=== PATIENT | male | born 1960 | race Caucasian/White ===

== ENCOUNTER 2016-09-23 10:52 | Emergency (ER) | payer OTHER ==
[~2016-09-23 10:52] MED LIST: /ADVA50050 INH; ACET500C OR; ACET65TA OR; ADV250INH INH; ALBU17IN INH; ASTE0.15; LEVA0.636 INH; MUCI600T34 PO; PRIL40CA OR; TYLE500T78 PO; albuterol neb
[2016-09-23 11:58] LABS: BASO % 0.5 % (0.0-1.0); LARGE UNSTAINED CELL # 0.2 K/mm3 (0.0-0.4); LARGE UNSTAINED CELL % 5.5 % (0.0-4.0); LYMPH # 1.5 K/mm3 (1.5-4.5); LYMPH % 34.4 % (24.0-44.0); MEAN CORPUSCULAR HEMOGLOBIN 28.8 pg (27.0-33.0); MEAN CORPUSCULAR HGB CONC 34.5 g/dl (32.0-36.5); MEAN CORPUSCULAR VOLUME 83.5 fl (80.0-96.0); MONO # 0.5 K/mm3 (0.0-0.8); MONO % 12.5 % (0.0-5.0); NEUTROPHILS # 1.9 K/mm3 (1.8-7.7); NEUTROPHILS % 46.1 % (36.0-66.0); PLATELET COUNT, AUTOMATED 181 k/mm3 (150-450); RED CELL DISTRIBUTION WIDTH 14.9 % (11.5-14.5); WHITE BLOOD COUNT 4.2 K/mm3 (4.0-10.0)
--- NOTE | 2016-09-23 12:11 | REP ---
CHEST, ONE VIEW: HISTORY: Cough. COMPARISON: 09/04/2016. There is elevation of the right hemidiaphragm with loss of volume in the right hemithorax. Linear density is present in the right lower lobe consistent with scar. There is postoperative change in the right hilum. The left lung is clear. The heart is normal in size. A catheter is present in the superior vena cava. There is partial resection of the right 6th rib. IMPRESSION: There is postoperative change in the right hemithorax. There is no acute disease. Signed by Keith Newberry MD 09/23/2016 12:13 P
[2016-09-23 12:52] LABS: ALBUMIN 3.7 GM/DL (3.2-5.2); ALBUMIN/GLOBULIN RATIO 1.19 (1.00-1.93); ALKALINE PHOSPHATASE 99 U/L (45-117); ALT/SGPT 25 U/L (12-78); ANION GAP 9 MEQ/L (8-16); AST/SGOT 17 U/L (15-37); BILIRUBIN,DIRECT < 0.1 MG/DL (0.0-0.2); BILIRUBIN,TOTAL 0.5 MG/DL (0.2-1.0); BLOOD UREA NITROGEN 17 MG/DL (7-18); CALCIUM LEVEL 8.1 MG/DL (8.5-10.1); CARBON DIOXIDE LEVEL 27 MEQ/L (21-32); CHLORIDE LEVEL 106 MEQ/L (98-107); CREATININE FOR GFR 0.92 MG/DL (0.70-1.30); GLOMERULAR FILTRATION RATE > 60.0 (>56); GLUCOSE, FASTING 75 MG/DL (70-105); SODIUM LEVEL 142 MEQ/L (136-145); TOTAL PROTEIN 6.8 GM/DL (6.4-8.2)
--- NOTE | 2016-09-23 15:50 | EDDOCDS ---
Nurse's Notes [facility] Name: Quentin Amaya Age: 56 yrs Sex: Male : 1960 Arrival Date: 09/23/2016 Time: 10:52 Bed I8 / 16 Private MD: Nelson Pizano M.D. Diagnosis: Acute upper respiratory infection, unspecified Presentation: 09/23 10:57 Presenting complaint: Patient states: head cold for a couple of weeks ago- cough, sinus srm headaches. hasnt been able to do chemo treatments for 2 weeks. finished cipro today. continues to cough. hx Right upper lobe removal. temp 99.4 at home. Adult Sepsis Screening: The patient does not have new or worsening altered mentation. Patient's respiratory rate is less than 22. Systolic blood pressure is greater than 100. Patient has a qSOFA score of 0- Negative Sepsis Screen. Suicide/Homicide risk assessment- the patient denies having any suicidal and/or homicidal ideations and does not present with any other emotional, behavioral or mental health complaints. Status: Patient is not a room service manager or dependent. Transition of care: patient was not received from another setting of care. 10:57 Acuity: MERT Level 3 srm 10:57 Method Of Arrival: Walkin/Carried/Asstd srm Triage Assessment: 11:00 General: Appears in no apparent distress, Behavior is appropriate for age, cooperative. srm Pain: Pain currently is 2 out of 10 on a pain scale. HIV screening NA for this visit Offered previously. Historical: - Allergies: no known allergies; - Home Meds: 1. Advair Diskus 250-50 mcg/dose Inhl dsdv 1 puff daily 2. albuterol sulfate 90 mcg/actuation Inhl HFAA 2 puffs daily 3. mucinex twice a day (Last dose: 09/23/2016 05:30) 4. asterpro 2 sprays 2 spray daily 5. Cipro 500 mg Oral tab 1 tab every 12 hours was his last dose (Last dose: 09/23/2016 09:30) - PMHx: COPD; Emphysema; Seasonal Allergies; lung cancer; - PSHx: left elbow surgery; Shoulder Arthroplasty, Left; Knee surgery- Left; right lobe resection; - Social history: Smoking status: Patient states former smoker of tobacco. No barriers to communication noted, The patient speaks fluent Ivorian, Speaks appropriately for age. - Family history: No immediate family members are acutely ill. - : The pt / caregiver states he / she is not on anticoagulants. Home medication list is obtained from the patient. - Exposure Risk Screening:: None identified. Screenin:02 Screening information is obtained from the patient. Fall risk: No risks identified. mb9 Assistance ADL's: requires no assistance with activities of daily living. Abuse/DV Screen: The patient / caregiver reports he/she is: not in a situation that causes fear, pain or injury. Nutritional screening: No deficits noted. Advance Directives: There is no active DNR order. home support is adequate. Assessment: 11:15 General: Appears in no apparent distress, Behavior is appropriate for age, cooperative. mb9 Pain: Denies pain. Neurological: Level of Consciousness is awake, alert, Oriented to person, place, time. Respiratory: Airway is patent Respiratory effort is even, unlabored, Breath sounds are clear in left posterior upper lobe and left posterior lower lobe Breath sounds are diminished in right posterior upper lobe, right posterior middle lobe and right posterior lower lobe Breath sounds with wheezes expiratory in right posterior upper lobe, right posterior middle lobe and right posterior lower lobe. 13:02 Reassessment: Patient appears in no apparent distress at this time. Adult Sepsis mb9 Screening: The patient does not have new or worsening altered mentation. Patient's respiratory rate is less than 22. Systolic blood pressure is greater than 100. Patient has a qSOFA score of 0- Negative Sepsis Screen. General: Appears to be sleeping. Respiratory: Airway is patent Respiratory effort is even, unlabored. 15:46 Reassessment: Patient appears in no apparent distress at this time. Patient states mb9 symptoms have improved. Adult Sepsis Screening: The patient does not have new or worsening altered mentation. Patient's respiratory rate is less than 22. Systolic blood pressure is greater than 100. Patient has a qSOFA score of 0- Negative Sepsis Screen. General: Appears in no apparent distress, comfortable, Behavior is appropriate for age, cooperative. Pain: Denies pain. Respiratory: Airway is patent Respiratory effort is even, unlabored. Vital Signs: 10:54 BP 146 / 85; Pulse 107; Resp 18 S; Temp 96.6(O); Pulse Ox 97% on R/A; Weight 95.25 kg dd6 (R); Height 5 ft. 6 in. (167.64 cm); 12:46 BP 139 / 92 (auto/); mb9 12:46 Pulse 88 MON; Pulse Ox 96% on R/A; mb9 13:16 BP 139 / 92 (auto/); mb9 13:16 Pulse 86 MON; Pulse Ox 94% on R/A; mb9 13:46 BP 142 / 95 (auto/); mb9 13:47 Pulse 84 MON; Resp 19; Temp 98.5(T); Pulse Ox 96% ; Pain 0/10; mb9 15:38 BP 135 / 89 (auto/); mb9 15:39 Pulse 88 MON; Resp 17; Temp 97(T); Pulse Ox 96% ; mb9 10:54 Body Mass Index 33.89 (95.25 kg, 167.64 cm) dd6 Vitals: 10:54 Log In Time: September 23, 2016 at 10:52. dd6 ED Course: 10:54 Patient visited by Eliud Jean PCA. dd6 10:54 Nelson Pizano is Private Physician. dd6 10:54 Patient moved to Waiting dd6 10:56 Patient moved to Pre RCE dd6 10:59 Triage Initiated srm 11:00 Patient moved to I8 / 16 srm 11:28 Patient visited by Shyam Gutierrez PCA. jlf 11:28 Patient visited by Shyam Gutierrez PCA. jlf 11:28 EKG done. (by ED staff). Reviewed by Amara Leung MD. jlf 11:30 Amara Leung MD is Attending Physician. sd1 11:42 Patient visited by Amara Leung MD. sd1 11:47 Patient visited by Shyam Gutierrez PCA. jlf 11:47 -Blood Culture Sent. jlf 11:47 C Reactive Protein Sent. jlf 11:47 CBC with Diff Sent. jlf 11:47 Lactic Acid (Wallace tube on ice) Sent. jlf 11:47 Liver Profile Sent. jlf 11:47 MED Profile Sent. jlf 11:55 Accessed using accessed w/ # 20 Berger needle, sterile technique, per hospital protocol. mb9 in patient's anterior aspect of left upper chest. Clean & dry. Dressing intact. Good blood return. Flushes easily. 12:11 Urine Culture Sent. mb9 12:11 Urinalysis Sent. mb9 12:17 Patient visited by Shyam Gutierrez PCA. jlf 12:37 Chest, 1 View Returned. EDMS 12:57 [facility] Payment Agreement was scanned into [employer] and attached to record. mm15 13:02 The patient / caregiver is instructed regarding the plan of care and ED course. Patient lukas has correct armband on for positive identification. Placed in gown. Call light in reach. Side rails up X 1. 13:03 Patient visited by Jose M Ribeiro,BENJAMÍN. mb9 14:06 Patient visited by Jose M Ribeiro RN. mb9 14:43 Patient visited by Shyam Gutierrez PCA. jlf 15:24 Nelson Pizano is Referral Physician. sd1 15:24 Gloria Adair is Referral Physician. sd1 15:47 Discontinued pressure dressing applied, No redness/swelling at site. No procedures done mb9 that require assistance. Administered Medications: 15:46 Drug: heparin 100units/mL flush (infusaport) 5 ml [heparin, porcine (PF) 10 unit/mL mb9 intravenous syringe (5 mL)] Route: IVP; Site: Implantable Access Device; Order Results: Lab Order: C Reactive Protein; SPEC'M 09/23/16 11:46 Test: C REACTIVE PROTEIN QUANTITATIV; Value: 3.23; Range: 0.00-0.30; Abnormal: Above high normal; Units: MG/DL; Status: F Lab Order: CBC with Diff; SPEC'M 09/23/16 11:46 Test: WHITE BLOOD COUNT; Value: 4.2; Range: 4.0-10.0; Units: K/mm3; Status: F Test: RED BLOOD COUNT; Value: 4.96; Range: 4.30-6.10; Units: M/mm3; Status: F Test: HEMOGLOBIN; Value: 14.3; Range: 14.0-18.0; Units: g/dl; Status: F Test: HEMATOCRIT; Value: 41.4; Range: 42.0-52.0; Abnormal: Below low normal; Units: %; Status: F Test: MEAN CORPUSCULAR VOLUME; Value: 83.5; Range: 80.0-96.0; Units: fl; Status: F Test: MEAN CORPUSCULAR HEMOGLOBIN; Value: 28.8; Range: 27.0-33.0; Units: pg; Status: F Test: MEAN CORPUSCULAR HGB CONC; Value: 34.5; Range: 32.0-36.5; Units: g/dl; Status: F Test: RED CELL DISTRIBUTION WIDTH; Value: 14.9; Range: 11.5-14.5; Abnormal: Above high normal; Units: %; Status: F Test: PLATELET COUNT, AUTOMATED; Value: 181; Range: 150-450; Units: k/mm3; Status: F Test: NEUTROPHILS %; Value: 46.1; Range: 36.0-66.0; Units: %; Status: F Test: LYMPH %; Value: 34.4; Range: 24.0-44.0; Units: %; Status: F Test: MONO %; Value: 12.5; Range: 0.0-5.0; Abnormal: Above high normal; Units: %; Status: F Test: EOS %; Value: 1.0; Range: 0.0-3.0; Units: %; Status: F Test: BASO %; Value: 0.5; Range: 0.0-1.0; Units: %; Status: F Test: LARGE UNSTAINED CELL %; Value: 5.5; Range: 0.0-4.0; Abnormal: Above high normal; Units: %; Status: F Test: NEUTROPHILS #; Value: 1.9; Range: 1.8-7.7; Units: K/mm3; Status: F Test: LYMPH #; Value: 1.5; Range: 1.5-4.5; Units: K/mm3; Status: F Test: MONO #; Value: 0.5; Range: 0.0-0.8; Units: K/mm3; Status: F Test: EOS #; Value: 0.0; Range: 0.0-0.50; Units: K/mm3; Status: F Test: BASO #; Value: 0.0; Range: 0.0-0.2; Units: K/mm3; Status: F Test: LARGE UNSTAINED CELL #; Value: 0.2; Range: 0.0-0.4; Units: K/mm3; Status: F Lab Order: Lactic Acid (Wallace tube on ice); SPEC'M 09/23/16 11:47 Test: LACTIC ACID LEVEL, LACTATE; Value: 0.6; Range: 0.4-2.0; Units: MMOL/L; Status: F Lab Order: Liver Profile; SPEC'M 09/23/16 11:46 Test: AST/SGOT; Value: 17; Range: 15-37; Units: U/L; Status: F Test: ALT/SGPT; Value: 25; Range: 12-78; Units: U/L; Status: F Test: ALKALINE PHOSPHATASE; Value: 99; Range: 45-117; Units: U/L; Status: F Test: BILIRUBIN,TOTAL; Value: 0.5; Range: 0.2-1.0; Units: MG/DL; Status: F Test: BILIRUBIN,DIRECT; Value: < 0.1; Range: 0.0-0.2; Units: MG/DL; Status: F Test: TOTAL PROTEIN; Value: 6.8; Range: 6.4-8.2; Units: GM/DL; Status: F Test: ALBUMIN; Value: 3.7; Range: 3.2-5.2; Units: GM/DL; Status: F Test: ALBUMIN/GLOBULIN RATIO; Value: 1.19; Range: 1.00-1.93; Status: F Lab Order: MED Profile; SPEC'M 09/23/16 11:46 Test: GLUCOSE, FASTING; Value: 75; Range: 70-105; Units: MG/DL; Status: F Test: BLOOD UREA NITROGEN; Value: 17; Range: 7-18; Units: MG/DL; Status: F Test: CREATININE FOR GFR; Value: 0.92; Range: 0.70-1.30; Units: MG/DL; Status: F Test: GLOMERULAR FILTRATION RATE; Value: > 60.0; Range: >56; Status: F Test: SODIUM LEVEL; Value: 142; Range: 136-145; Units: MEQ/L; Status: F Test: POTASSIUM SERUM; Value: 4.0; Range: 3.5-5.1; Units: MEQ/L; Status: F Test: CHLORIDE LEVEL; Value: 106; Range: 98-107; Units: MEQ/L; Status: F Test: CARBON DIOXIDE LEVEL; Value: 27; Range: 21-32; Units: MEQ/L; Status: F Test: ANION GAP; Value: 9; Range: 8-16; Units: MEQ/L; Status: F Test: CALCIUM LEVEL; Value: 8.1; Range: 8.5-10.1; Abnormal: Below low normal; Units: MG/DL; Status: F Test Note: ; Units are mL/min/1.73 m2 Chronic Kidney Disease Staging per NKF: Stage I & II GFR >=60 Normal to Mildly Decreased Stage III GFR 30-59 Moderately Decreased Stage IV GFR 15-29 Severely Decreased Stage V GFR <15 Very Little GFR Left ESRD GFR <15 on TINTER PHOTOGRAPH Lab Order: Urinalysis; SPEC'M 09/23/16 11:46 Test: APPEARANCE, URINE; Value: HAZY; Range: CLEAR; Status: F Test: COLOR, URINE; Value: YELLOW; Range: YELLOW; Status: F Test: PH,URINE; Value: 5.0; Range: 5.0-9.0; Units: UNITS; Status: F Test: SPECIFIC GRAVITY URINE AUTO; Value: 1.024; Range: 1.002-1.035; Status: F Test: PROTEIN, URINE AUTO; Value: NEGATIVE; Range: NEGATIVE; Units: mg/dL; Status: F Test: GLUCOSE, URINE (UA) AUTO; Value: NEGATIVE; Range: NEGATIVE; Units: mg/dL; Status: F Test: KETONE, URINE AUTO; Value: NEGATIVE; Range: NEGATIVE; Units: mg/dL; Status: F Test: UROBILINOGEN, URINE AUTO; Value: 0.2; Range: 0.0-2.0; Units: mg/dL; Status: F Test: BILIRUBIN, URINE AUTO; Value: NEGATIVE; Range: NEGATIVE; Status: F Test: NITRITE, URINE AUTO; Value: NEGATIVE; Range: NEGATIVE; Status: F Test: LEUKOCYTE ESTERASE, URINE AUTO; Value: NEGATIVE; Range: NEGATIVE; Status: F Test: BLOOD, URINE BLOOD; Value: NEGATIVE; Range: NEGATIVE; Status: F Test: WBC, URINE AUTO; Value: 1; Range: 0-3; Units: /HPF; Status: F Test: RBC, URINE AUTO; Value: 1; Range: 0-3; Units: /HPF; Status: F Test: BACTERIA, URINE AUTO; Value: NEGATIVE; Range: NEGATIVE; Status: F Test: SQUAMOUS EPITHELIAL CELL UR AU; Value: 0; Range: 0-6; Units: /HPF; Status: F Test: MUCUS, URINE; Value: SMALL; Range: NEGATIVE; Status: F Test: HYALINE CAST, URINE AUTO; Value: 0; Range: 0-1; Units: /LPF; Status: F Radiology Order: Chest, 1 View Test: Chest, 1 View REASON FOR EXAMINATION: Cough; CHEST, ONE VIEW:; ; HISTORY: Cough.; ; COMPARISON: 09/04/2016.; ; There is elevation of the right hemidiaphragm with loss of volume in the right; hemithorax. Linear density is present in the right lower lobe consistent with; scar. There is postoperative change in the right hilum. The left lung is clear.; The heart is normal in size. A catheter is present in the superior vena cava.; There is partial resection of the right 6th rib.; ; IMPRESSION:; ; There is postoperative change in the right hemithorax. There is no acute; disease.; ; ; Signed by; Keith Newberry MD 09/23/2016 12:13 P; Outcome: 15:24 Discharge ordered by Provider. sd1 15:47 Discharge Assessment: Patient awake, alert and oriented x 3. No cognitive and/or mb9 functional deficits noted. Patient verbalized understanding of disposition instructions. patient administered narcotics - no. The following High Risk Discharge criteria are identified: None. Discharged to home ambulatory. Condition: good Condition: stable Condition: improved. Discharge instructions given to patient, Instructed on discharge instructions, follow up and referral plans. Demonstrated understanding of instructions, medications, Prescriptions given X. CT Study completed. Property :Personal belongings accompany Pt. 15:49 Patient left the ED. mb9 Signatures: Dispatcher [employer] EDMS Amara Leung MD MD sd1 Haylie Gotti, RN RN Eliud Jaime, GROUNDS WORKER GROUNDS WORKER dd6 Consuelo Parks mm15 Shyam Gutierrez, GROUNDS WORKER GROUNDS WORKER jlf Jose M Ribeiro RN RN mb9 Corrections: (The following items were deleted from the chart) 12:48 12:35 Pulse 78bpm; Monitor; Pulse Ox 99%; mb9 mb9 12:48 12:34 BP 119 / 58 Auto; mb9 mb9 12:48 12:20 Pulse 82bpm; Monitor; Pulse Ox 93%; mb9 mb9 12:48 12:19 BP 133 / 64 Auto; mb9 mb9 12:48 12:05 Pulse 84bpm; Monitor; Pulse Ox 94%; mb9 mb9 12:48 12:04 BP 119 / 59 Auto; mb9 mb9 12:48 12:17 Pulse 86bpm; Monitor; Pulse Ox 93%; mb9 mb9 12:48 12:16 BP 139 / 92 Auto; mb9 mb9 MTDD
--- NOTE | 2016-09-23 15:50 | EDDOCDS ---
Physician Documentation [facility] Name: Quentin Amaya Age: 56 yrs Sex: Male : 1960 Arrival Date: 09/23/2016 Time: 10:52 Bed I8 / 16 Private MD: Nelson Pizano M.D. Disposition: 09/23/16 15:24 Discharged to Home/Self Care. Impression: Acute upper respiratory infection, unspecified. - Condition is Stable. - Discharge Instructions: Upper Respiratory Infection, Adult. - Medication Reconciliation, Local Pharmacy Hours form. - Follow up: Nelson Pizano; When: 1 - 2 days. Follow up: Gloria Adair; When: Tomorrow. - Problem is new. - Symptoms are unchanged. Historical: - Allergies: no known allergies; - Home Meds: 1. Advair Diskus 250-50 mcg/dose Inhl dsdv 1 puff daily 2. albuterol sulfate 90 mcg/actuation Inhl HFAA 2 puffs daily 3. mucinex twice a day (Last dose: 09/23/2016 05:30) 4. asterpro 2 sprays 2 spray daily 5. Cipro 500 mg Oral tab 1 tab every 12 hours was his last dose (Last dose: 09/23/2016 09:30) - PMHx: COPD; Emphysema; Seasonal Allergies; lung cancer; - PSHx: left elbow surgery; Shoulder Arthroplasty, Left; Knee surgery- Left; right lobe resection; - Social history: Smoking status: Patient states former smoker of tobacco. No barriers to communication noted, The patient speaks fluent Czech, Speaks appropriately for age. - Family history: No immediate family members are acutely ill. - : The pt / caregiver states he / she is not on anticoagulants. Home medication list is obtained from the patient. - Exposure Risk Screening:: None identified. Vital Signs: 09/23 10:54 BP 146 / 85; Pulse 107; Resp 18 S; Temp 96.6(O); Pulse Ox 97% on R/A; Weight 95.25 kg / dd6 209.99 lbs (R); Height 5 ft. 6 in. (167.64 cm); 12:46 BP 139 / 92 (auto/); mb9 12:46 Pulse 88 MON; Pulse Ox 96% on R/A; mb9 13:16 BP 139 / 92 (auto/); mb9 13:16 Pulse 86 MON; Pulse Ox 94% on R/A; mb9 13:46 BP 142 / 95 (auto/); mb9 13:47 Pulse 84 MON; Resp 19; Temp 98.5(T); Pulse Ox 96% ; Pain 0/10; mb9 15:38 BP 135 / 89 (auto/); mb9 15:39 Pulse 88 MON; Resp 17; Temp 97(T); Pulse Ox 96% ; mb9 10:54 Body Mass Index 33.89 (95.25 kg, 167.64 cm) dd6 MDM: 11:07 -Blood Culture (Adults Only), peripheral from different site, or from device/port/PICC sd1 etc. if present ordered. 11:07 Service Promoter Salesperson/Pulse Ox/q 15 min VS ordered. sd1 11:07 Oxygen at 4L/Min NC or Home dosage ordered. sd1 11:08 C Reactive Protein Ordered. EDMS 11:08 CBC with Diff Ordered. EDMS 11:08 Lactic Acid (Wallace tube on ice) Ordered. EDMS 11:08 Liver Profile Ordered. EDMS 11:08 MED Profile Ordered. EDMS 11:08 Urinalysis Ordered. EDMS 11:09 -Blood Culture Ordered. EDMS 11:09 Urine Culture Ordered. EDMS 11:09 Chest, 1 View Ordered. EDMS 11:09 ECG WITH READING ER PHYS+CARDIAG ordered. EDMS 11:23 -Blood Culture (Adults Only), peripheral from different site, or from device/port/PICC lbd etc. if present complete. 11:25 BLOOD CULTURES Ordered. EDMS 12:46 Financial registration complete. mm15 12:57 [facility] Payment Agreement was scanned into [employer] and attached to record. mm15 13:24 C Reactive Protein Reviewed. sd1 13:24 CBC with Diff Reviewed. sd1 13:24 MED Profile Reviewed. sd1 13:24 Lactic Acid (Wallace tube on ice) Reviewed. sd1 13:24 Liver Profile Reviewed. sd1 13:24 Urinalysis Reviewed. sd1 13:24 Chest, 1 View Reviewed. sd1 14:30 CT Chest Without Contrast Ordered. EDMS 15:34 heparin 100units/mL flush (infusaport) 5 ml IVP once; flush first with 10mL of NS mb9 followed by heparin ordered. 15:34 Access Infusaport ordered. mb9 Administered Medications: 15:46 Drug: heparin 100units/mL flush (infusaport) 5 ml [heparin, porcine (PF) 10 unit/mL mb9 intravenous syringe (5 mL)] Route: IVP; Site: Implantable Access Device; Signatures: Dispatcher [employer] EDAmara Ryan MD MD sd1 Laurence Askew, Industrial Sociologist Unit lbd Haylie Gotti RN RN [facility] Consuelo Parks mm15 Jose M Ribeiro RN RN mb9 The chart was reviewed and I authenticate all verbal orders and agree with the evaluation and treatment provided.Attachments: 12:57 [facility] Payment Agreement mm15 MTDD
--- NOTE | 2016-09-23 15:59 | REP ---
CT chest without contrast, 09/23/2016: Indication : Cough and fever, on chemotherapy Comparison: CT chest 06/23/16, chest radiograph 09/04/16. Technique: 3 mm spiral axial sections performed through chest without contrast Findings: Thoracic aorta is without aneurysm. The heart is not enlarged. Soft tissue fullness is seen within the paratracheal region at the site of previously resected mass versus adenopathy which was hypermetabolic on PET scan 04/16/2016. Findings suggest prior right upper lobectomy. There is some volume loss within the right lung, especially apical region. There are several small punctate nodular densities within the lung luna which are compatible with calcified granulomata. Some nodules may not be calcified at this time, yet could represent granulomatous disease as well, although they are technically indeterminate. There are no pleural effusions or areas of lung consolidation. There is some atelectatic changes in the right lower lobe. There is mild to moderate diffuse fatty infiltration of liver. There are no focal intrahepatic lesions seen. Evaluation of the abdomen is limited by motion or respiratory artifact. There is persistent mural thickening within the distal esophagus at gastroesophageal junction as previously noted. Visualized portions of spleen, pancreas, and gallbladder grossly normal, but limited by motion artifact. Impression1. Postsurgical changes within the right hilum most compatible with prior right upper lobectomy. Persistent mural thickening within the distal intrathoracic esophagus and gastroesophageal junction, which should be correlated clinically.2. Mild atelectatic changes in the right apical region and in the right base. There are no focal alveolar infiltrates or pleural effusions.3. Multiple calcified granulomata are seen bilaterally. There also a few scattered tiny round nodules, likely granulomatous disease yet not calcified. These of course are technically indeterminate and interval follow-up is recommended.4. Mild to moderate diffuse fatty infiltration of liver. Motion artifact obscures evaluation of the abdomen. Signed by Kirstie Carpio MD 09/26/2016 03:53 P
--- NOTE | 2016-09-23 20:01 | ECGEPIP ---
Stationary ECG Study [facility] - ED Test Date: 2016-09-23 Pat Name: MARLEN BONILLA Department: Room: - Gender: M Hospital Receiving Clerk: anjali : 1960 Requested By: Amara Leung Order Number: [id number] Reading MD: Amara Leung Measurements Intervals [place] Rate: 93 P: 36 OK: 116 QRS: 40 QRSD: 75 T: 7 QT: 345 QTc: 430 Interpretive Statements SINUS RHYTHM WITH SHORT OK INTERVAL NONSPECIFIC T-WAVE ABNORMALITY SIMILAR 06/23/16 Electronically Signed On 09-23-2016 20:00:57 EST by Amara Leung
--- NOTE | 2016-09-25 16:50 | EDDOCDS ---
Nurse's Notes [facility] Name: Marlen Bonilla Age: 56 yrs Sex: Male : 1960 Arrival Date: 09/23/2016 Time: 10:52 Bed I8 / 16 Private MD: Nelson Pizano M.D. Diagnosis: Acute upper respiratory infection, unspecified Presentation: 09/23 10:57 Presenting complaint: Patient states: head cold for a couple of weeks ago- cough, sinus srm headaches. hasnt been able to do chemo treatments for 2 weeks. finished cipro today. continues to cough. hx Right upper lobe removal. temp 99.4 at home. Adult Sepsis Screening: The patient does not have new or worsening altered mentation. Patient's respiratory rate is less than 22. Systolic blood pressure is greater than 100. Patient has a qSOFA score of 0- Negative Sepsis Screen. Suicide/Homicide risk assessment- the patient denies having any suicidal and/or homicidal ideations and does not present with any other emotional, behavioral or mental health complaints. 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 Transition of care: patient was not received from another setting of care. 10:57 Acuity: MERT Level 3 srm 10:57 Method Of Arrival: Walkin/Carried/Asstd srm Triage Assessment: 11:00 General: Appears in no apparent distress, Behavior is appropriate for age, cooperative. srm Pain: Pain currently is 2 out of 10 on a pain scale. HIV screening NA for this visit Offered previously. Historical: - Allergies: no known allergies; - Home Meds: 1. Advair Diskus 250-50 mcg/dose Inhl dsdv 1 puff daily 2. albuterol sulfate 90 mcg/actuation Inhl HFAA 2 puffs daily 3. mucinex twice a day (Last dose: 09/23/2016 05:30) 4. asterpro 2 sprays 2 spray daily 5. Cipro 500 mg Oral tab 1 tab every 12 hours was his last dose (Last dose: 09/23/2016 09:30) - PMHx: COPD; Emphysema; Seasonal Allergies; lung cancer; - PSHx: left elbow surgery; Shoulder Arthroplasty, Left; Knee surgery- Left; right lobe resection; - Social history: Smoking status: Patient states former smoker of tobacco. No barriers to communication noted, The patient speaks fluent Indonesian, Speaks appropriately for age. - Family history: No immediate family members are acutely ill. - : The pt / caregiver states he / she is not on anticoagulants. Home medication list is obtained from the patient. - Exposure Risk Screening:: None identified. Screenin:02 Screening information is obtained from the patient. Fall risk: No risks identified. mb9 Assistance ADL's: requires no assistance with activities of daily living. Abuse/DV Screen: The patient / caregiver reports he/she is: not in a situation that causes fear, pain or injury. Nutritional screening: No deficits noted. Advance Directives: There is no active DNR order. home support is adequate. Assessment: 11:15 General: Appears in no apparent distress, Behavior is appropriate for age, cooperative. mb9 Pain: Denies pain. Neurological: Level of Consciousness is awake, alert, Oriented to person, place, time. Respiratory: Airway is patent Respiratory effort is even, unlabored, Breath sounds are clear in left posterior upper lobe and left posterior lower lobe Breath sounds are diminished in right posterior upper lobe, right posterior middle lobe and right posterior lower lobe Breath sounds with wheezes expiratory in right posterior upper lobe, right posterior middle lobe and right posterior lower lobe. 13:02 Reassessment: Patient appears in no apparent distress at this time. Adult Sepsis mb9 Screening: The patient does not have new or worsening altered mentation. Patient's respiratory rate is less than 22. Systolic blood pressure is greater than 100. Patient has a qSOFA score of 0- Negative Sepsis Screen. General: Appears to be sleeping. Respiratory: Airway is patent Respiratory effort is even, unlabored. 15:46 Reassessment: Patient appears in no apparent distress at this time. Patient states mb9 symptoms have improved. Adult Sepsis Screening: The patient does not have new or worsening altered mentation. Patient's respiratory rate is less than 22. Systolic blood pressure is greater than 100. Patient has a qSOFA score of 0- Negative Sepsis Screen. General: Appears in no apparent distress, comfortable, Behavior is appropriate for age, cooperative. Pain: Denies pain. Respiratory: Airway is patent Respiratory effort is even, unlabored. Vital Signs: 10:54 BP 146 / 85; Pulse 107; Resp 18 S; Temp 96.6(O); Pulse Ox 97% on R/A; Weight 95.25 kg dd6 (R); Height 5 ft. 6 in. (167.64 cm); 12:46 BP 139 / 92 (auto/); mb9 12:46 Pulse 88 MON; Pulse Ox 96% on R/A; mb9 13:16 BP 139 / 92 (auto/); mb9 13:16 Pulse 86 MON; Pulse Ox 94% on R/A; mb9 13:46 BP 142 / 95 (auto/); mb9 13:47 Pulse 84 MON; Resp 19; Temp 98.5(T); Pulse Ox 96% ; Pain 0/10; mb9 15:38 BP 135 / 89 (auto/); mb9 15:39 Pulse 88 MON; Resp 17; Temp 97(T); Pulse Ox 96% ; mb9 10:54 Body Mass Index 33.89 (95.25 kg, 167.64 cm) dd6 Vitals: 10:54 Log In Time: September 23, 2016 at 10:52. dd6 ED Course: 10:54 Patient visited by Eliud Jean PCA. dd6 10:54 Nelson Pizano is Private Physician. dd6 10:54 Patient moved to Waiting dd6 10:56 Patient moved to Pre RCE dd6 10:59 Triage Initiated srm 11:00 Patient moved to I8 / 16 srm 11:28 Patient visited by Shyam Gutierrez PCA. jlf 11:28 Patient visited by Shyam Gutierrez PCA. jlf 11:28 EKG done. (by ED staff). Reviewed by Amara Leung MD. jlf 11:30 Amara Leung MD is Attending Physician. sd1 11:42 Patient visited by Amara Leung MD. sd1 11:47 Patient visited by Shyam Gutierrez PCA. jlf 11:47 -Blood Culture Sent. jlf 11:47 C Reactive Protein Sent. jlf 11:47 CBC with Diff Sent. jlf 11:47 Lactic Acid (Wallace tube on ice) Sent. jlf 11:47 Liver Profile Sent. jlf 11:47 MED Profile Sent. jlf 11:55 Accessed using accessed w/ # 20 Berger needle, sterile technique, per hospital protocol. mb9 in patient's anterior aspect of left upper chest. Clean & dry. Dressing intact. Good blood return. Flushes easily. 12:11 Urine Culture Sent. mb9 12:11 Urinalysis Sent. mb9 12:17 Patient visited by Shyam Gutierrez PCA. jlf 12:37 Chest, 1 View Returned. EDMS 12:57 [facility] Payment Agreement was scanned into [employer] and attached to record. mm15 13:02 The patient / caregiver is instructed regarding the plan of care and ED course. Patient lukas has correct armband on for positive identification. Placed in gown. Call light in reach. Side rails up X 1. 13:03 Patient visited by Jose M Ribeiro,BENJAMÍN. mb9 14:06 Patient visited by Jose M Ribeiro RN. mb9 14:43 Patient visited by Shyam Gutierrez PCA. jlf 15:24 Nelson Pizano is Referral Physician. sd1 15:24 Gloria Adair is Referral Physician. sd1 15:47 Discontinued pressure dressing applied, No redness/swelling at site. No procedures done mb9 that require assistance. 16:35 CT Chest Without Contrast Returned. EDMS 20:06 EKG-ADULT Returned. EDMS 01 11:33 T-Sheet-- Draft Copy was scanned into [employer] and attached to record. gb Administered Medications: 09/23 15:46 Drug: heparin 100units/mL flush (infusaport) 5 ml [heparin, porcine (PF) 10 unit/mL mb9 intravenous syringe (5 mL)] Route: IVP; Site: Implantable Access Device; Order Results: Lab Order: -Blood Culture; SPEC'M 09/23/16 11:46 Test: BLOOD CULTURE; Value: No growth after 24 hours . All specimens observed; Status: F Test: BLOOD CULTURE; Value: for 5 days. Results final at that time.; Status: F Test: BLOOD CULTURE; Value: No Growth after 48 hours. All Specimens observed; Status: F Test: BLOOD CULTURE; Value: for 7 days. Results final at that time.; Status: F Lab Order: C Reactive Protein; SPEC'M 09/23/16 11:46 Test: C REACTIVE PROTEIN QUANTITATIV; Value: 3.23; Range: 0.00-0.30; Abnormal: Above high normal; Units: MG/DL; Status: F Lab Order: CBC with Diff; SPEC'M 09/23/16 11:46 Test: WHITE BLOOD COUNT; Value: 4.2; Range: 4.0-10.0; Units: K/mm3; Status: F Test: RED BLOOD COUNT; Value: 4.96; Range: 4.30-6.10; Units: M/mm3; Status: F Test: HEMOGLOBIN; Value: 14.3; Range: 14.0-18.0; Units: g/dl; Status: F Test: HEMATOCRIT; Value: 41.4; Range: 42.0-52.0; Abnormal: Below low normal; Units: %; Status: F Test: MEAN CORPUSCULAR VOLUME; Value: 83.5; Range: 80.0-96.0; Units: fl; Status: F Test: MEAN CORPUSCULAR HEMOGLOBIN; Value: 28.8; Range: 27.0-33.0; Units: pg; Status: F Test: MEAN CORPUSCULAR HGB CONC; Value: 34.5; Range: 32.0-36.5; Units: g/dl; Status: F Test: RED CELL DISTRIBUTION WIDTH; Value: 14.9; Range: 11.5-14.5; Abnormal: Above high normal; Units: %; Status: F Test: PLATELET COUNT, AUTOMATED; Value: 181; Range: 150-450; Units: k/mm3; Status: F Test: NEUTROPHILS %; Value: 46.1; Range: 36.0-66.0; Units: %; Status: F Test: LYMPH %; Value: 34.4; Range: 24.0-44.0; Units: %; Status: F Test: MONO %; Value: 12.5; Range: 0.0-5.0; Abnormal: Above high normal; Units: %; Status: F Test: EOS %; Value: 1.0; Range: 0.0-3.0; Units: %; Status: F Test: BASO %; Value: 0.5; Range: 0.0-1.0; Units: %; Status: F Test: LARGE UNSTAINED CELL %; Value: 5.5; Range: 0.0-4.0; Abnormal: Above high normal; Units: %; Status: F Test: NEUTROPHILS #; Value: 1.9; Range: 1.8-7.7; Units: K/mm3; Status: F Test: LYMPH #; Value: 1.5; Range: 1.5-4.5; Units: K/mm3; Status: F Test: MONO #; Value: 0.5; Range: 0.0-0.8; Units: K/mm3; Status: F Test: EOS #; Value: 0.0; Range: 0.0-0.50; Units: K/mm3; Status: F Test: BASO #; Value: 0.0; Range: 0.0-0.2; Units: K/mm3; Status: F Test: LARGE UNSTAINED CELL #; Value: 0.2; Range: 0.0-0.4; Units: K/mm3; Status: F Lab Order: Lactic Acid (Wallace tube on ice); [facility] 09/23/16 11:47 Test: LACTIC ACID LEVEL, LACTATE; Value: 0.6; Range: 0.4-2.0; Units: MMOL/L; Status: F Lab Order: Liver Profile; [facility] 09/23/16 11:46 Test: AST/SGOT; Value: 17; Range: 15-37; Units: U/L; Status: F Test: ALT/SGPT; Value: 25; Range: 12-78; Units: U/L; Status: F Test: ALKALINE PHOSPHATASE; Value: 99; Range: 45-117; Units: U/L; Status: F Test: BILIRUBIN,TOTAL; Value: 0.5; Range: 0.2-1.0; Units: MG/DL; Status: F Test: BILIRUBIN,DIRECT; Value: < 0.1; Range: 0.0-0.2; Units: MG/DL; Status: F Test: TOTAL PROTEIN; Value: 6.8; Range: 6.4-8.2; Units: GM/DL; Status: F Test: ALBUMIN; Value: 3.7; Range: 3.2-5.2; Units: GM/DL; Status: F Test: ALBUMIN/GLOBULIN RATIO; Value: 1.19; Range: 1.00-1.93; Status: F Lab Order: MED Profile; [facility] 09/23/16 11:46 Test: GLUCOSE, FASTING; Value: 75; Range: 70-105; Units: MG/DL; Status: F Test: BLOOD UREA NITROGEN; Value: 17; Range: 7-18; Units: MG/DL; Status: F Test: CREATININE FOR GFR; Value: 0.92; Range: 0.70-1.30; Units: MG/DL; Status: F Test: GLOMERULAR FILTRATION RATE; Value: > 60.0; Range: >56; Status: F Test: SODIUM LEVEL; Value: 142; Range: 136-145; Units: MEQ/L; Status: F Test: POTASSIUM SERUM; Value: 4.0; Range: 3.5-5.1; Units: MEQ/L; Status: F Test: CHLORIDE LEVEL; Value: 106; Range: 98-107; Units: MEQ/L; Status: F Test: CARBON DIOXIDE LEVEL; Value: 27; Range: 21-32; Units: MEQ/L; Status: F Test: ANION GAP; Value: 9; Range: 8-16; Units: MEQ/L; Status: F Test: CALCIUM LEVEL; Value: 8.1; Range: 8.5-10.1; Abnormal: Below low normal; Units: MG/DL; Status: F Test Note: ; Units are mL/min/1.73 m2 Chronic Kidney Disease Staging per NKF: Stage I & II GFR >=60 Normal to Mildly Decreased Stage III GFR 30-59 Moderately Decreased Stage IV GFR 15-29 Severely Decreased Stage V GFR <15 Very Little GFR Left ESRD GFR <15 on DATA PROGRAMMER Lab Order: Urinalysis; SPEC'M 09/23/16 11:46 Test: APPEARANCE, URINE; Value: HAZY; Range: CLEAR; Status: F Test: COLOR, URINE; Value: YELLOW; Range: YELLOW; Status: F Test: PH,URINE; Value: 5.0; Range: 5.0-9.0; Units: UNITS; Status: F Test: SPECIFIC GRAVITY URINE AUTO; Value: 1.024; Range: 1.002-1.035; Status: F Test: PROTEIN, URINE AUTO; Value: NEGATIVE; Range: NEGATIVE; Units: mg/dL; Status: F Test: GLUCOSE, URINE (UA) AUTO; Value: NEGATIVE; Range: NEGATIVE; Units: mg/dL; Status: F Test: KETONE, URINE AUTO; Value: NEGATIVE; Range: NEGATIVE; Units: mg/dL; Status: F Test: UROBILINOGEN, URINE AUTO; Value: 0.2; Range: 0.0-2.0; Units: mg/dL; Status: F Test: BILIRUBIN, URINE AUTO; Value: NEGATIVE; Range: NEGATIVE; Status: F Test: NITRITE, URINE AUTO; Value: NEGATIVE; Range: NEGATIVE; Status: F Test: LEUKOCYTE ESTERASE, URINE AUTO; Value: NEGATIVE; Range: NEGATIVE; Status: F Test: BLOOD, URINE BLOOD; Value: NEGATIVE; Range: NEGATIVE; Status: F Test: WBC, URINE AUTO; Value: 1; Range: 0-3; Units: /HPF; Status: F Test: RBC, URINE AUTO; Value: 1; Range: 0-3; Units: /HPF; Status: F Test: BACTERIA, URINE AUTO; Value: NEGATIVE; Range: NEGATIVE; Status: F Test: SQUAMOUS EPITHELIAL CELL UR AU; Value: 0; Range: 0-6; Units: /HPF; Status: F Test: MUCUS, URINE; Value: SMALL; Range: NEGATIVE; Status: F Test: HYALINE CAST, URINE AUTO; Value: 0; Range: 0-1; Units: /LPF; Status: F Lab Order: Urine Culture; SPEC'M 09/23/16 11:46 Test: URINE CULTURE; Value: URINE CULTURE RESULT NO GROWTH; Status: F Lab Order: BLOOD CULTURES; SPEC'M 09/23/16 11:52 Test: BLOOD CULTURE; Value: No growth after 24 hours . All specimens observed; Status: F Test: BLOOD CULTURE; Value: for 5 days. Results final at that time.; Status: F Test: BLOOD CULTURE; Value: No Growth after 48 hours. All Specimens observed; Status: F Test: BLOOD CULTURE; Value: for 7 days. Results final at that time.; Status: F Radiology Order: Chest, 1 View Test: Chest, 1 View REASON FOR EXAMINATION: Cough; CHEST, ONE VIEW:; ; HISTORY: Cough.; ; COMPARISON: 09/04/2016.; ; There is elevation of the right hemidiaphragm with loss of volume in the right; hemithorax. Linear density is present in the right lower lobe consistent with; scar. There is postoperative change in the right hilum. The left lung is clear.; The heart is normal in size. A catheter is present in the superior vena cava.; There is partial resection of the right 6th rib.; ; IMPRESSION:; ; There is postoperative change in the right hemithorax. There is no acute; disease.; ; ; Signed by; Keith Newberry MD 09/23/2016 12:13 P; Radiology Order: EKG-ADULT Test: EKG-ADULT REASON FOR EXAMINATION: weakness; Stationary ECG Study; [facility] - ED; ; Test Date: 2016-09-23; Pat Name: MARLEN BONILLA Department:; Room: -; Gender: M Digital Forensic Analyst: anjali; : 1960 Requested By: Amara Leung; Order Number: [id number] Reading MD: Amara Leung; Measurements; Intervals [place]; Rate: 93 P: 36; TX: 116 QRS: 40; QRSD: 75 T: 7; QT: 345; QTc: 430; Interpretive Statements; SINUS RHYTHM WITH SHORT TX INTERVAL; NONSPECIFIC T-WAVE ABNORMALITY; SIMILAR 06/23/16; Electronically Signed On 09-23-2016 20:00:57 EST by Amara Leung; Radiology Order: CT Chest Without Contrast Test: CT Chest Without Contrast REASON FOR EXAMINATION: cough fever chemo ; CT chest without contrast, 09/23/2016:; ; Indication : Cough and fever, on chemotherapy; ; Comparison: CT chest 06/23/16, chest radiograph 09/04/16.; ; Technique: 3 mm spiral axial sections performed through chest without contrast; ; Findings: Thoracic aorta is without aneurysm. The heart is not enlarged. Soft; tissue fullness is seen within the paratracheal region at the site of previously; resected mass versus adenopathy which was hypermetabolic on PET scan 04/16/2016.; Findings suggest prior right upper lobectomy.; ; There is some volume loss within the right lung, especially apical region. There; are several small punctate nodular densities within the lung luna which are; compatible with calcified granulomata. Some nodules may not be calcified at this; time, yet could represent granulomatous disease as well, although they are; technically indeterminate. There are no pleural effusions or areas of lung; consolidation. There is some atelectatic changes in the right lower lobe.; ; There is mild to moderate diffuse fatty infiltration of liver. There are no; focal intrahepatic lesions seen. Evaluation of the abdomen is limited by motion; or respiratory artifact. There is persistent mural thickening within the distal; esophagus at gastroesophageal junction as previously noted. Visualized portions; of spleen, pancreas, and gallbladder grossly normal, but limited by motion; artifact.; ; Impression; 1. Postsurgical changes within the right hilum most compatible with prior right; upper lobectomy. Persistent mural thickening within the distal intrathoracic; esophagus and gastroesophageal junction, which should be correlated clinically.; 2. Mild atelectatic changes in the right apical region and in the right base.; There are no focal alveolar infiltrates or pleural effusions.; 3. Multiple calcified granulomata are seen bilaterally. There also a few; scattered tiny round nodules, likely granulomatous disease yet not calcified.; These of course are technically indeterminate and interval follow-up is; recommended.; 4. Mild to moderate diffuse fatty infiltration of liver. Motion artifact; obscures evaluation of the abdomen.; ; ; ; ; Unreviewed; Outcome: 15:24 Discharge ordered by Provider. sd1 15:47 Discharge Assessment: Patient awake, alert and oriented x 3. No cognitive and/or mb9 functional deficits noted. Patient verbalized understanding of disposition instructions. patient administered narcotics - no. The following High Risk Discharge criteria are identified: None. Discharged to home ambulatory. Condition: good Condition: stable Condition: improved. Discharge instructions given to patient, Instructed on discharge instructions, follow up and referral plans. Demonstrated understanding of instructions, medications, Prescriptions given X. CT Study completed. Property :Personal belongings accompany Pt. 15:49 Patient left the ED. mb9 Signatures: Dispatcher [employer] EDMS Amara Leung MD MD sd1 Haylie Gotti, BENJAMÍN RN [facility] Jia Acosta, Reg Reg Eliud Jean, COMMUNICATIONS PROFESSIONAL COMMUNICATIONS PROFESSIONAL dd6 Consuelo Parks mm15 Shyam Gutierrez, COMMUNICATIONS PROFESSIONAL COMMUNICATIONS PROFESSIONAL jlf Jose M Ribeiro,BENJAMÍN RN mb9 Corrections: (The following items were deleted from the chart) 12:48 12:35 Pulse 78bpm; Monitor; Pulse Ox 99%; mb9 mb9 12:48 12:34 BP 119 / 58 Auto; mb9 mb9 12:48 12:20 Pulse 82bpm; Monitor; Pulse Ox 93%; mb9 mb9 12:48 12:19 BP 133 / 64 Auto; mb9 mb9 12:48 12:05 Pulse 84bpm; Monitor; Pulse Ox 94%; mb9 mb9 12:48 12:04 BP 119 / 59 Auto; mb9 mb9 12:48 12:17 Pulse 86bpm; Monitor; Pulse Ox 93%; mb9 mb9 12:48 12:16 BP 139 / 92 Auto; mb9 mb9 Chart Complete MTDD
--- NOTE | 2016-09-25 16:50 | EDDOCDS ---
Physician Documentation [facility] Name: Quentin Amaya Age: 56 yrs Sex: Male : 1960 Arrival Date: 09/23/2016 Time: 10:52 Bed I8 / 16 Private MD: Nelson Pizano M.D. Disposition: 09/23/16 15:24 Discharged to Home/Self Care. Impression: Acute upper respiratory infection, unspecified. - Condition is Stable. - Discharge Instructions: Upper Respiratory Infection, Adult. - Medication Reconciliation, Local Pharmacy Hours form. - Follow up: Nelson Pizano; When: 1 - 2 days. Follow up: Gloria Adair; When: Tomorrow. - Problem is new. - Symptoms are unchanged. Historical: - Allergies: no known allergies; - Home Meds: 1. Advair Diskus 250-50 mcg/dose Inhl dsdv 1 puff daily 2. albuterol sulfate 90 mcg/actuation Inhl HFAA 2 puffs daily 3. mucinex twice a day (Last dose: 09/23/2016 05:30) 4. asterpro 2 sprays 2 spray daily 5. Cipro 500 mg Oral tab 1 tab every 12 hours was his last dose (Last dose: 09/23/2016 09:30) - PMHx: COPD; Emphysema; Seasonal Allergies; lung cancer; - PSHx: left elbow surgery; Shoulder Arthroplasty, Left; Knee surgery- Left; right lobe resection; - Social history: Smoking status: Patient states former smoker of tobacco. No barriers to communication noted, The patient speaks fluent Slovenian, Speaks appropriately for age. - Family history: No immediate family members are acutely ill. - : The pt / caregiver states he / she is not on anticoagulants. Home medication list is obtained from the patient. - Exposure Risk Screening:: None identified. Vital Signs: 09/23 10:54 BP 146 / 85; Pulse 107; Resp 18 S; Temp 96.6(O); Pulse Ox 97% on R/A; Weight 95.25 kg / dd6 209.99 lbs (R); Height 5 ft. 6 in. (167.64 cm); 12:46 BP 139 / 92 (auto/); mb9 12:46 Pulse 88 MON; Pulse Ox 96% on R/A; mb9 13:16 BP 139 / 92 (auto/); mb9 13:16 Pulse 86 MON; Pulse Ox 94% on R/A; mb9 13:46 BP 142 / 95 (auto/); mb9 13:47 Pulse 84 MON; Resp 19; Temp 98.5(T); Pulse Ox 96% ; Pain 0/10; mb9 15:38 BP 135 / 89 (auto/); mb9 15:39 Pulse 88 MON; Resp 17; Temp 97(T); Pulse Ox 96% ; mb9 10:54 Body Mass Index 33.89 (95.25 kg, 167.64 cm) dd6 MDM: 11:07 -Blood Culture (Adults Only), peripheral from different site, or from device/port/PICC sd1 etc. if present ordered. 11:07 Hyperion Administrator/Pulse Ox/q 15 min VS ordered. sd1 11:07 Oxygen at 4L/Min NC or Home dosage ordered. sd1 11:08 C Reactive Protein Ordered. EDMS 11:08 CBC with Diff Ordered. EDMS 11:08 Lactic Acid (Wallace tube on ice) Ordered. EDMS 11:08 Liver Profile Ordered. EDMS 11:08 MED Profile Ordered. EDMS 11:08 Urinalysis Ordered. EDMS 11:09 -Blood Culture Ordered. EDMS 11:09 Urine Culture Ordered. EDMS 11:09 Chest, 1 View Ordered. EDMS 11:09 ECG WITH READING ER PHYS+CARDIAG ordered. EDMS 11:23 -Blood Culture (Adults Only), peripheral from different site, or from device/port/PICC lbd etc. if present complete. 11:25 BLOOD CULTURES Ordered. EDMS 12:46 Financial registration complete. mm15 12:57 [facility] [place] Agreement was scanned into [employer] and attached to record. mm15 13:24 C Reactive Protein Reviewed. sd1 13:24 CBC with Diff Reviewed. sd1 13:24 MED Profile Reviewed. sd1 13:24 Lactic Acid (Wallace tube on ice) Reviewed. sd1 13:24 Liver Profile Reviewed. sd1 13:24 Urinalysis Reviewed. sd1 13:24 Chest, 1 View Reviewed. sd1 14:30 CT Chest Without Contrast Ordered. EDMS 15:34 heparin 100units/mL flush (infusaport) 5 ml IVP once; flush first with 10mL of NS mb9 followed by heparin ordered. 15:34 Access Infusaport ordered. mb9 09/24 12:22 -Blood Culture Reviewed. sd1 12:22 Urine Culture Reviewed. sd1 12:22 BLOOD CULTURES Reviewed. sd1 12:22 EKG-ADULT Reviewed. sd1 12:22 CT Chest Without Contrast Reviewed. sd1 09/25 11:33 T-Sheet-- Draft Copy was scanned into [employer] and attached to record. gb Administered Medications: 09/23 15:46 Drug: heparin 100units/mL flush (infusaport) 5 ml [heparin, porcine (PF) 10 unit/mL mb9 intravenous syringe (5 mL)] Route: IVP; Site: Implantable Access Device; Signatures: Dispatcher [employer] EDAmara Ryan MD MD sd1 Laurence Askew, Payment Manager Unit lbd Haylie Gotti RN RN [facility] Jia Acosta, Reg Reg gb Consuelo Parks mm15 Jose M Ribeiro,RN RN mb9 The chart was reviewed and I authenticate all verbal orders and agree with the evaluation and treatment provided.Attachments: 12:57 [facility] Payment Agreement mm15 09/25 11:33 T-Sheet-- Draft Copy gb Chart Complete [facility]
--- NOTE | 2016-09-25 16:50 | EDDOCDS ---
Physician Documentation [facility] Name: Quentin Amaya Age: 56 yrs Sex: Male : 1960 Arrival Date: 09/23/2016 Time: 10:52 Bed I8 / 16 Private MD: Nelson Pizano M.D. Disposition: 09/23/16 15:24 Discharged to Home/Self Care. Impression: Acute upper respiratory infection, unspecified. - Condition is Stable. - Discharge Instructions: Upper Respiratory Infection, Adult. - Medication Reconciliation, Local Pharmacy Hours form. - Follow up: Nelson Pizano; When: 1 - 2 days. Follow up: Gloria Adair; When: Tomorrow. - Problem is new. - Symptoms are unchanged. Historical: - Allergies: no known allergies; - Home Meds: 1. Advair Diskus 250-50 mcg/dose Inhl dsdv 1 puff daily 2. albuterol sulfate 90 mcg/actuation Inhl HFAA 2 puffs daily 3. mucinex twice a day (Last dose: 09/23/2016 05:30) 4. asterpro 2 sprays 2 spray daily 5. Cipro 500 mg Oral tab 1 tab every 12 hours was his last dose (Last dose: 09/23/2016 09:30) - PMHx: COPD; Emphysema; Seasonal Allergies; lung cancer; - PSHx: left elbow surgery; Shoulder Arthroplasty, Left; Knee surgery- Left; right lobe resection; - Social history: Smoking status: Patient states former smoker of tobacco. No barriers to communication noted, The patient speaks fluent French, Speaks appropriately for age. - Family history: No immediate family members are acutely ill. - : The pt / caregiver states he / she is not on anticoagulants. Home medication list is obtained from the patient. - Exposure Risk Screening:: None identified. Vital Signs: 09/23 10:54 BP 146 / 85; Pulse 107; Resp 18 S; Temp 96.6(O); Pulse Ox 97% on R/A; Weight 95.25 kg / dd6 209.99 lbs (R); Height 5 ft. 6 in. (167.64 cm); 12:46 BP 139 / 92 (auto/); mb9 12:46 Pulse 88 MON; Pulse Ox 96% on R/A; mb9 13:16 BP 139 / 92 (auto/); mb9 13:16 Pulse 86 MON; Pulse Ox 94% on R/A; mb9 13:46 BP 142 / 95 (auto/); mb9 13:47 Pulse 84 MON; Resp 19; Temp 98.5(T); Pulse Ox 96% ; Pain 0/10; mb9 15:38 BP 135 / 89 (auto/); mb9 15:39 Pulse 88 MON; Resp 17; Temp 97(T); Pulse Ox 96% ; mb9 10:54 Body Mass Index 33.89 (95.25 kg, 167.64 cm) dd6 MDM: 11:07 -Blood Culture (Adults Only), peripheral from different site, or from device/port/PICC sd1 etc. if present ordered. 11:07 Wire Drawing Die Maker/Pulse Ox/q 15 min VS ordered. sd1 11:07 Oxygen at 4L/Min NC or Home dosage ordered. sd1 11:08 C Reactive Protein Ordered. EDMS 11:08 CBC with Diff Ordered. EDMS 11:08 Lactic Acid (Wallace tube on ice) Ordered. EDMS 11:08 Liver Profile Ordered. EDMS 11:08 MED Profile Ordered. EDMS 11:08 Urinalysis Ordered. EDMS 11:09 -Blood Culture Ordered. EDMS 11:09 Urine Culture Ordered. EDMS 11:09 Chest, 1 View Ordered. EDMS 11:09 ECG WITH READING ER PHYS+CARDIAG ordered. EDMS 11:23 -Blood Culture (Adults Only), peripheral from different site, or from device/port/PICC lbd etc. if present complete. 11:25 BLOOD CULTURES Ordered. EDMS 12:46 Financial registration complete. mm15 12:57 [facility] Payment Agreement was scanned into [employer] and attached to record. mm15 13:24 C Reactive Protein Reviewed. sd1 13:24 CBC with Diff Reviewed. sd1 13:24 MED Profile Reviewed. sd1 13:24 Lactic Acid (Wallace tube on ice) Reviewed. sd1 13:24 Liver Profile Reviewed. sd1 13:24 Urinalysis Reviewed. sd1 13:24 Chest, 1 View Reviewed. sd1 14:30 CT Chest Without Contrast Ordered. EDMS 15:34 heparin 100units/mL flush (infusaport) 5 ml IVP once; flush first with 10mL of NS mb9 followed by heparin ordered. 15:34 Access Infusaport ordered. mb9 09/24 12:22 -Blood Culture Reviewed. sd1 12:22 Urine Culture Reviewed. sd1 12:22 BLOOD CULTURES Reviewed. sd1 12:22 EKG-ADULT Reviewed. sd1 12:22 CT Chest Without Contrast Reviewed. sd1 09/25 11:33 T-Sheet-- Draft Copy was scanned into [employer] and attached to record. gb Administered Medications: 09/23 15:46 Drug: heparin 100units/mL flush (infusaport) 5 ml [heparin, porcine (PF) 10 unit/mL mb9 intravenous syringe (5 mL)] Route: IVP; Site: Implantable Access Device; Signatures: Dispatcher [employer] EDAmara Ryan MD MD sd1 Laurence Askew, Secondary Education Professor Unit lbd Haylie Gotti RN RN [facility] Jia Acosta, Reg Reg gb Consuelo Parks mm15 Jose M Ribeiro,RN RN mb9 The chart was reviewed and I authenticate all verbal orders and agree with the evaluation and treatment provided.Attachments: 12:57 [facility] Payment Agreement mm15 09/25 11:33 T-Sheet-- Draft Copy gb Chart Complete [facility]
--- NOTE | 2016-09-29 09:20 | EDDOCDS ---
Physician Documentation [facility] Name: Quentin Amaya Age: 56 yrs Sex: Male : 1960 Arrival Date: 09/23/2016 Time: 10:52 Bed I8 / 16 Private MD: Nelson Pizano M.D. Disposition: 09/23/16 15:24 Discharged to Home/Self Care. Impression: Acute upper respiratory infection, unspecified. - Condition is Stable. - Discharge Instructions: Upper Respiratory Infection, Adult. - Medication Reconciliation, Local Pharmacy Hours form. - Follow up: Nelson Pizano; When: 1 - 2 days. Follow up: Gloria Adair; When: Tomorrow. - Problem is new. - Symptoms are unchanged. Historical: - Allergies: no known allergies; - Home Meds: 1. Advair Diskus 250-50 mcg/dose Inhl dsdv 1 puff daily 2. albuterol sulfate 90 mcg/actuation Inhl HFAA 2 puffs daily 3. mucinex twice a day (Last dose: 09/23/2016 05:30) 4. asterpro 2 sprays 2 spray daily 5. Cipro 500 mg Oral tab 1 tab every 12 hours was his last dose (Last dose: 09/23/2016 09:30) - PMHx: COPD; Emphysema; Seasonal Allergies; lung cancer; - PSHx: left elbow surgery; Shoulder Arthroplasty, Left; Knee surgery- Left; right lobe resection; - Social history: Smoking status: Patient states former smoker of tobacco. No barriers to communication noted, The patient speaks fluent Yi, Speaks appropriately for age. - Family history: No immediate family members are acutely ill. - : The pt / caregiver states he / she is not on anticoagulants. Home medication list is obtained from the patient. - Exposure Risk Screening:: None identified. Vital Signs: 09/23 10:54 BP 146 / 85; Pulse 107; Resp 18 S; Temp 96.6(O); Pulse Ox 97% on R/A; Weight 95.25 kg / dd6 209.99 lbs (R); Height 5 ft. 6 in. (167.64 cm); 12:46 BP 139 / 92 (auto/); mb9 12:46 Pulse 88 MON; Pulse Ox 96% on R/A; mb9 13:16 BP 139 / 92 (auto/); mb9 13:16 Pulse 86 MON; Pulse Ox 94% on R/A; mb9 13:46 BP 142 / 95 (auto/); mb9 13:47 Pulse 84 MON; Resp 19; Temp 98.5(T); Pulse Ox 96% ; Pain 0/10; mb9 15:38 BP 135 / 89 (auto/); mb9 15:39 Pulse 88 MON; Resp 17; Temp 97(T); Pulse Ox 96% ; mb9 10:54 Body Mass Index 33.89 (95.25 kg, 167.64 cm) dd6 MDM: 11:07 -Blood Culture (Adults Only), peripheral from different site, or from device/port/PICC sd1 etc. if present ordered. 11:07 Coating Manager/Pulse Ox/q 15 min VS ordered. sd1 11:07 Oxygen at 4L/Min NC or Home dosage ordered. sd1 11:08 C Reactive Protein Ordered. EDMS 11:08 CBC with Diff Ordered. EDMS 11:08 Lactic Acid (Wallace tube on ice) Ordered. EDMS 11:08 Liver Profile Ordered. EDMS 11:08 MED Profile Ordered. EDMS 11:08 Urinalysis Ordered. EDMS 11:09 -Blood Culture Ordered. EDMS 11:09 Urine Culture Ordered. EDMS 11:09 Chest, 1 View Ordered. EDMS 11:09 ECG WITH READING ER PHYS+CARDIAG ordered. EDMS 11:23 -Blood Culture (Adults Only), peripheral from different site, or from device/port/PICC lbd etc. if present complete. 11:25 BLOOD CULTURES Ordered. EDMS 12:46 Financial registration complete. mm15 12:57 [facility] Payment Agreement was scanned into [employer] and attached to record. mm15 13:24 C Reactive Protein Reviewed. sd1 13:24 CBC with Diff Reviewed. sd1 13:24 MED Profile Reviewed. sd1 13:24 Lactic Acid (Wallace tube on ice) Reviewed. sd1 13:24 Liver Profile Reviewed. sd1 13:24 Urinalysis Reviewed. sd1 13:24 Chest, 1 View Reviewed. sd1 14:30 CT Chest Without Contrast Ordered. EDMS 15:34 heparin 100units/mL flush (infusaport) 5 ml IVP once; flush first with 10mL of NS mb9 followed by heparin ordered. 15:34 Access Infusaport ordered. mb9 09/24 12:22 -Blood Culture Reviewed. sd1 12:22 Urine Culture Reviewed. sd1 12:22 BLOOD CULTURES Reviewed. sd1 12:22 EKG-ADULT Reviewed. sd1 12:22 CT Chest Without Contrast Reviewed. sd1 09/25 11:33 T-Sheet-- Draft Copy was scanned into [employer] and attached to record. gb Administered Medications: 09/23 15:46 Drug: heparin 100units/mL flush (infusaport) 5 ml [heparin, porcine (PF) 10 unit/mL mb9 intravenous syringe (5 mL)] Route: IVP; Site: Implantable Access Device; Signatures: Dispatcher [employer]Host EDAmara Ryan MD MD sd1 Laurence Askew, Button Maker And Installer Unit lbd Haylie Gotti RN RN [facility] Jia Acosta, Reg Reg gb Consuelo Parks mm15 Jose M Ribeiro,RN RN mb9 The chart was reviewed and I authenticate all verbal orders and agree with the evaluation and treatment provided.Attachments: 12:57 [facility] Payment Agreement mm15 09/25 11:33 T-Sheet-- Draft Copy gb Chart Complete [facility]
--- NOTE | 2016-09-29 09:20 | EDDOCDS ---
Physician Documentation [facility] Name: Quentin Amaya Age: 56 yrs Sex: Male : 1960 Arrival Date: 09/23/2016 Time: 10:52 Bed I8 / 16 Private MD: Nelson Pizano M.D. Disposition: 09/23/16 15:24 Discharged to Home/Self Care. Impression: Acute upper respiratory infection, unspecified. - Condition is Stable. - Discharge Instructions: Upper Respiratory Infection, Adult. - Medication Reconciliation, Local Pharmacy Hours form. - Follow up: Nelson Pizano; When: 1 - 2 days. Follow up: Gloria Adair; When: Tomorrow. - Problem is new. - Symptoms are unchanged. Historical: - Allergies: no known allergies; - Home Meds: 1. Advair Diskus 250-50 mcg/dose Inhl dsdv 1 puff daily 2. albuterol sulfate 90 mcg/actuation Inhl HFAA 2 puffs daily 3. mucinex twice a day (Last dose: 09/23/2016 05:30) 4. asterpro 2 sprays 2 spray daily 5. Cipro 500 mg Oral tab 1 tab every 12 hours was his last dose (Last dose: 09/23/2016 09:30) - PMHx: COPD; Emphysema; Seasonal Allergies; lung cancer; - PSHx: left elbow surgery; Shoulder Arthroplasty, Left; Knee surgery- Left; right lobe resection; - Social history: Smoking status: Patient states former smoker of tobacco. No barriers to communication noted, The patient speaks fluent Latvian, Speaks appropriately for age. - Family history: No immediate family members are acutely ill. - : The pt / caregiver states he / she is not on anticoagulants. Home medication list is obtained from the patient. - Exposure Risk Screening:: None identified. Vital Signs: 09/23 10:54 BP 146 / 85; Pulse 107; Resp 18 S; Temp 96.6(O); Pulse Ox 97% on R/A; Weight 95.25 kg / dd6 209.99 lbs (R); Height 5 ft. 6 in. (167.64 cm); 12:46 BP 139 / 92 (auto/); mb9 12:46 Pulse 88 MON; Pulse Ox 96% on R/A; mb9 13:16 BP 139 / 92 (auto/); mb9 13:16 Pulse 86 MON; Pulse Ox 94% on R/A; mb9 13:46 BP 142 / 95 (auto/); mb9 13:47 Pulse 84 MON; Resp 19; Temp 98.5(T); Pulse Ox 96% ; Pain 0/10; mb9 15:38 BP 135 / 89 (auto/); mb9 15:39 Pulse 88 MON; Resp 17; Temp 97(T); Pulse Ox 96% ; mb9 10:54 Body Mass Index 33.89 (95.25 kg, 167.64 cm) dd6 MDM: 11:07 -Blood Culture (Adults Only), peripheral from different site, or from device/port/PICC sd1 etc. if present ordered. 11:07 Fulfillment Representative/Pulse Ox/q 15 min VS ordered. sd1 11:07 Oxygen at 4L/Min NC or Home dosage ordered. sd1 11:08 C Reactive Protein Ordered. EDMS 11:08 CBC with Diff Ordered. EDMS 11:08 Lactic Acid (Wallace tube on ice) Ordered. EDMS 11:08 Liver Profile Ordered. EDMS 11:08 MED Profile Ordered. EDMS 11:08 Urinalysis Ordered. EDMS 11:09 -Blood Culture Ordered. EDMS 11:09 Urine Culture Ordered. EDMS 11:09 Chest, 1 View Ordered. EDMS 11:09 ECG WITH READING ER PHYS+CARDIAG ordered. EDMS 11:23 -Blood Culture (Adults Only), peripheral from different site, or from device/port/PICC lbd etc. if present complete. 11:25 BLOOD CULTURES Ordered. EDMS 12:46 Financial registration complete. mm15 12:57 [facility] [place] Payment Agreement was scanned into [employer] and attached to record. mm15 13:24 C Reactive Protein Reviewed. sd1 13:24 CBC with Diff Reviewed. sd1 13:24 MED Profile Reviewed. sd1 13:24 Lactic Acid (Wallace tube on ice) Reviewed. sd1 13:24 Liver Profile Reviewed. sd1 13:24 Urinalysis Reviewed. sd1 13:24 Chest, 1 View Reviewed. sd1 14:30 CT Chest Without Contrast Ordered. EDMS 15:34 heparin 100units/mL flush (infusaport) 5 ml IVP once; flush first with 10mL of NS mb9 followed by heparin ordered. 15:34 Access Infusaport ordered. mb9 09/24 12:22 -Blood Culture Reviewed. sd1 12:22 Urine Culture Reviewed. sd1 12:22 BLOOD CULTURES Reviewed. sd1 12:22 EKG-ADULT Reviewed. sd1 12:22 CT Chest Without Contrast Reviewed. sd1 09/25 11:33 T-Sheet-- Draft Copy was scanned into [employer] and attached to record. gb Administered Medications: 09/23 15:46 Drug: heparin 100units/mL flush (infusaport) 5 ml [heparin, porcine (PF) 10 unit/mL mb9 intravenous syringe (5 mL)] Route: IVP; Site: Implantable Access Device; Signatures: Dispatcher [employer] EDAmara Ryan MD MD sd1 Laurence Askew, Gas Fitter Helper Unit lbd Haylie Gotti RN RN [facility] Jia Acosta, Reg Reg gb Consuelo Parks mm15 Jose M Ribeiro,RN RN mb9 The chart was reviewed and I authenticate all verbal orders and agree with the evaluation and treatment provided.Attachments: 12:57 [facility] Payment Agreement mm15 09/25 11:33 T-Sheet-- Draft Copy gb Chart Complete [facility]
--- NOTE | 2016-09-29 09:20 | EDDOCDS ---
Nurse's Notes [facility] Name: Marlen Bonilla Age: 56 yrs Sex: Male : 1960 Arrival Date: 09/23/2016 Time: 10:52 Bed I8 / 16 Private MD: Nelson Pizano M.D. Diagnosis: Acute upper respiratory infection, unspecified Presentation: 09/23 10:57 Presenting complaint: Patient states: head cold for a couple of weeks ago- cough, sinus srm headaches. hasnt been able to do chemo treatments for 2 weeks. finished cipro today. continues to cough. hx Right upper lobe removal. temp 99.4 at home. Adult Sepsis Screening: The patient does not have new or worsening altered mentation. Patient's respiratory rate is less than 22. Systolic blood pressure is greater than 100. Patient has a qSOFA score of 0- Negative Sepsis Screen. Suicide/Homicide risk assessment- the patient denies having any suicidal and/or homicidal ideations and does not present with any other emotional, behavioral or mental health complaints. Status: Patient is not a fiscal services manager or dependent. Transition of care: patient was not received from another setting of care. 10:57 Acuity: MERT Level 3 srm 10:57 Method Of Arrival: Walkin/Carried/Asstd srm Triage Assessment: 11:00 General: Appears in no apparent distress, Behavior is appropriate for age, cooperative. srm Pain: Pain currently is 2 out of 10 on a pain scale. HIV screening NA for this visit Offered previously. Historical: - Allergies: no known allergies; - Home Meds: 1. Advair Diskus 250-50 mcg/dose Inhl dsdv 1 puff daily 2. albuterol sulfate 90 mcg/actuation Inhl HFAA 2 puffs daily 3. mucinex twice a day (Last dose: 09/23/2016 05:30) 4. asterpro 2 sprays 2 spray daily 5. Cipro 500 mg Oral tab 1 tab every 12 hours was his last dose (Last dose: 09/23/2016 09:30) - PMHx: COPD; Emphysema; Seasonal Allergies; lung cancer; - PSHx: left elbow surgery; Shoulder Arthroplasty, Left; Knee surgery- Left; right lobe resection; - Social history: Smoking status: Patient states former smoker of tobacco. No barriers to communication noted, The patient speaks fluent [place]er, Speaks appropriately for age. - Family history: No immediate family members are acutely ill. - : The pt / caregiver states he / she is not on anticoagulants. Home medication list is obtained from the patient. - Exposure Risk Screening:: None identified. Screenin:02 Screening information is obtained from the patient. Fall risk: No risks identified. mb9 Assistance ADL's: requires no assistance with activities of daily living. Abuse/DV Screen: The patient / caregiver reports he/she is: not in a situation that causes fear, pain or injury. Nutritional screening: No deficits noted. Advance Directives: There is no active DNR order. home support is adequate. Assessment: 11:15 General: Appears in no apparent distress, Behavior is appropriate for age, cooperative. mb9 Pain: Denies pain. Neurological: Level of Consciousness is awake, alert, Oriented to person, place, time. Respiratory: Airway is patent Respiratory effort is even, unlabored, Breath sounds are clear in left posterior upper lobe and left posterior lower lobe Breath sounds are diminished in right posterior upper lobe, right posterior middle lobe and right posterior lower lobe Breath sounds with wheezes expiratory in right posterior upper lobe, right posterior middle lobe and right posterior lower lobe. 13:02 Reassessment: Patient appears in no apparent distress at this time. Adult Sepsis mb9 Screening: The patient does not have new or worsening altered mentation. Patient's respiratory rate is less than 22. Systolic blood pressure is greater than 100. Patient has a qSOFA score of 0- Negative Sepsis Screen. General: Appears to be sleeping. Respiratory: Airway is patent Respiratory effort is even, unlabored. 15:46 Reassessment: Patient appears in no apparent distress at this time. Patient states mb9 symptoms have improved. Adult Sepsis Screening: The patient does not have new or worsening altered mentation. Patient's respiratory rate is less than 22. Systolic blood pressure is greater than 100. Patient has a qSOFA score of 0- Negative Sepsis Screen. General: Appears in no apparent distress, comfortable, Behavior is appropriate for age, cooperative. Pain: Denies pain. Respiratory: Airway is patent Respiratory effort is even, unlabored. Vital Signs: 10:54 BP 146 / 85; Pulse 107; Resp 18 S; Temp 96.6(O); Pulse Ox 97% on R/A; Weight 95.25 kg dd6 (R); Height 5 ft. 6 in. (167.64 cm); 12:46 BP 139 / 92 (auto/); mb9 12:46 Pulse 88 MON; Pulse Ox 96% on R/A; mb9 13:16 BP 139 / 92 (auto/); mb9 13:16 Pulse 86 MON; Pulse Ox 94% on R/A; mb9 13:46 BP 142 / 95 (auto/); mb9 13:47 Pulse 84 MON; Resp 19; Temp 98.5(T); Pulse Ox 96% ; Pain 0/10; mb9 15:38 BP 135 / 89 (auto/); mb9 15:39 Pulse 88 MON; Resp 17; Temp 97(T); Pulse Ox 96% ; mb9 10:54 Body Mass Index 33.89 (95.25 kg, 167.64 cm) dd6 Vitals: 10:54 Log In Time: September 23, 2016 at 10:52. dd6 ED Course: 10:54 Patient visited by Eliud Jean PCA. dd6 10:54 Nelson Pizano is Private Physician. dd6 10:54 Patient moved to Waiting dd6 10:56 Patient moved to Pre RCE dd6 10:59 Triage Initiated srm 11:00 Patient moved to I8 / 16 srm 11:28 Patient visited by Shyam Gutierrez PCA. jlf 11:28 Patient visited by Shyam Gutierrez PCA. jlf 11:28 EKG done. (by ED staff). Reviewed by Amara Leung MD. jlf 11:30 Amara Leung MD is Attending Physician. sd1 11:42 Patient visited by Amara Leung MD. sd1 11:47 Patient visited by Shyam Gutierrez PCA. jlf 11:47 -Blood Culture Sent. jlf 11:47 C Reactive Protein Sent. jlf 11:47 CBC with Diff Sent. jlf 11:47 Lactic Acid (Wallace tube on ice) Sent. jlf 11:47 Liver Profile Sent. jlf 11:47 MED Profile Sent. jlf 11:55 Accessed using accessed w/ # 20 Berger needle, sterile technique, per hospital protocol. mb9 in patient's anterior aspect of left upper chest. Clean & dry. Dressing intact. Good blood return. Flushes easily. 12:11 Urine Culture Sent. mb9 12:11 Urinalysis Sent. mb9 12:17 Patient visited by Shyam Gutierrez PCA. jlf 12:37 Chest, 1 View Returned. EDMS 12:57 [facility] Payment Agreement was scanned into [employer] and attached to record. mm15 13:02 The patient / caregiver is instructed regarding the plan of care and ED course. Patient lukas has correct armband on for positive identification. Placed in gown. Call light in reach. Side rails up X 1. 13:03 Patient visited by Jose M Ribeiro,BENJAMÍN. mb9 14:06 Patient visited by Jose M Ribeiro RN. mb9 14:43 Patient visited by Shyam Gutierrez PCA. jlf 15:24 Nelson Pizano is Referral Physician. sd1 15:24 Gloria Adair is Referral Physician. sd1 15:47 Discontinued pressure dressing applied, No redness/swelling at site. No procedures done mb9 that require assistance. 16:35 CT Chest Without Contrast Returned. EDMS 20:06 EKG-ADULT Returned. EDMS 01 11:33 T-Sheet-- Draft Copy was scanned into [employer] and attached to record. gb Administered Medications: 09/23 15:46 Drug: heparin 100units/mL flush (infusaport) 5 ml [heparin, porcine (PF) 10 unit/mL mb9 intravenous syringe (5 mL)] Route: IVP; Site: Implantable Access Device; Order Results: Lab Order: -Blood Culture; SPEC'M 09/23/16 11:46 Test: BLOOD CULTURE; Value: No growth after 72 hours . All specimens observed; Status: F Test: BLOOD CULTURE; Value: for 5 days. Results final at that time.; Status: F Test: BLOOD CULTURE; Status: F Test: BLOOD CULTURE; Value: No growth after 48 hours . All specimens observed; Status: F Test: BLOOD CULTURE; Value: for 5 days. Results final at that time.; Status: F Test: BLOOD CULTURE; Status: F Test: BLOOD CULTURE; Value: No growth after 24 hours . All specimens observed; Status: F Test: BLOOD CULTURE; Value: for 5 days. Results final at that time.; Status: F Test: BLOOD CULTURE; Value: NO GROWTH AFTER 5 DAYS; Status: F Lab Order: C Reactive Protein; SPEC'M 09/23/16 11:46 Test: C REACTIVE PROTEIN QUANTITATIV; Value: 3.23; Range: 0.00-0.30; Abnormal: Above high normal; Units: MG/DL; Status: F Lab Order: CBC with Diff; SPEC'M 09/23/16 11:46 Test: WHITE BLOOD COUNT; Value: 4.2; Range: 4.0-10.0; Units: K/mm3; Status: F Test: RED BLOOD COUNT; Value: 4.96; Range: 4.30-6.10; Units: M/mm3; Status: F Test: HEMOGLOBIN; Value: 14.3; Range: 14.0-18.0; Units: g/dl; Status: F Test: HEMATOCRIT; Value: 41.4; Range: 42.0-52.0; Abnormal: Below low normal; Units: %; Status: F Test: MEAN CORPUSCULAR VOLUME; Value: 83.5; Range: 80.0-96.0; Units: fl; Status: F Test: MEAN CORPUSCULAR HEMOGLOBIN; Value: 28.8; Range: 27.0-33.0; Units: pg; Status: F Test: MEAN CORPUSCULAR HGB CONC; Value: 34.5; Range: 32.0-36.5; Units: g/dl; Status: F Test: RED CELL DISTRIBUTION WIDTH; Value: 14.9; Range: 11.5-14.5; Abnormal: Above high normal; Units: %; Status: F Test: PLATELET COUNT, AUTOMATED; Value: 181; Range: 150-450; Units: k/mm3; Status: F Test: NEUTROPHILS %; Value: 46.1; Range: 36.0-66.0; Units: %; Status: F Test: LYMPH %; Value: 34.4; Range: 24.0-44.0; Units: %; Status: F Test: MONO %; Value: 12.5; Range: 0.0-5.0; Abnormal: Above high normal; Units: %; Status: F Test: EOS %; Value: 1.0; Range: 0.0-3.0; Units: %; Status: F Test: BASO %; Value: 0.5; Range: 0.0-1.0; Units: %; Status: F Test: LARGE UNSTAINED CELL %; Value: 5.5; Range: 0.0-4.0; Abnormal: Above high normal; Units: %; Status: F Test: NEUTROPHILS #; Value: 1.9; Range: 1.8-7.7; Units: K/mm3; Status: F Test: LYMPH #; Value: 1.5; Range: 1.5-4.5; Units: K/mm3; Status: F Test: MONO #; Value: 0.5; Range: 0.0-0.8; Units: K/mm3; Status: F Test: EOS #; Value: 0.0; Range: 0.0-0.50; Units: K/mm3; Status: F Test: BASO #; Value: 0.0; Range: 0.0-0.2; Units: K/mm3; Status: F Test: LARGE UNSTAINED CELL #; Value: 0.2; Range: 0.0-0.4; Units: K/mm3; Status: F Lab Order: Lactic Acid (Wallace tube on ice); SPEC'M 09/23/16 11:47 Test: LACTIC ACID LEVEL, LACTATE; Value: 0.6; Range: 0.4-2.0; Units: MMOL/L; Status: F Lab Order: Liver Profile; SPEC'M 09/23/16 11:46 Test: AST/SGOT; Value: 17; Range: 15-37; Units: U/L; Status: F Test: ALT/SGPT; Value: 25; Range: 12-78; Units: U/L; Status: F Test: ALKALINE PHOSPHATASE; Value: 99; Range: 45-117; Units: U/L; Status: F Test: BILIRUBIN,TOTAL; Value: 0.5; Range: 0.2-1.0; Units: MG/DL; Status: F Test: BILIRUBIN,DIRECT; Value: < 0.1; Range: 0.0-0.2; Units: MG/DL; Status: F Test: TOTAL PROTEIN; Value: 6.8; Range: 6.4-8.2; Units: GM/DL; Status: F Test: ALBUMIN; Value: 3.7; Range: 3.2-5.2; Units: GM/DL; Status: F Test: ALBUMIN/GLOBULIN RATIO; Value: 1.19; Range: 1.00-1.93; Status: F Lab Order: MED Profile; SPEC'M 09/23/16 11:46 Test: GLUCOSE, FASTING; Value: 75; Range: 70-105; Units: MG/DL; Status: F Test: BLOOD UREA NITROGEN; Value: 17; Range: 7-18; Units: MG/DL; Status: F Test: CREATININE FOR GFR; Value: 0.92; Range: 0.70-1.30; Units: MG/DL; Status: F Test: GLOMERULAR FILTRATION RATE; Value: > 60.0; Range: >56; Status: F Test: SODIUM LEVEL; Value: 142; Range: 136-145; Units: MEQ/L; Status: F Test: POTASSIUM SERUM; Value: 4.0; Range: 3.5-5.1; Units: MEQ/L; Status: F Test: CHLORIDE LEVEL; Value: 106; Range: 98-107; Units: MEQ/L; Status: F Test: CARBON DIOXIDE LEVEL; Value: 27; Range: 21-32; Units: MEQ/L; Status: F Test: ANION GAP; Value: 9; Range: 8-16; Units: MEQ/L; Status: F Test: CALCIUM LEVEL; Value: 8.1; Range: 8.5-10.1; Abnormal: Below low normal; Units: MG/DL; Status: F Test Note: ; Units are mL/min/1.73 m2 Chronic Kidney Disease Staging per NKF: Stage I & II GFR >=60 Normal to Mildly Decreased Stage III GFR 30-59 Moderately Decreased Stage IV GFR 15-29 Severely Decreased Stage V GFR <15 Very Little GFR Left ESRD GFR <[address] ABSTRACTOR Lab Order: Urinalysis; SPEC'M 09/23/16 11:46 Test: APPEARANCE, URINE; Value: HAZY; Range: CLEAR; Status: F Test: COLOR, URINE; Value: YELLOW; Range: YELLOW; Status: F Test: PH,URINE; Value: 5.0; Range: 5.0-9.0; Units: UNITS; Status: F Test: SPECIFIC GRAVITY URINE AUTO; Value: 1.024; Range: 1.002-1.035; Status: F Test: PROTEIN, URINE AUTO; Value: NEGATIVE; Range: NEGATIVE; Units: mg/dL; Status: F Test: GLUCOSE, URINE (UA) AUTO; Value: NEGATIVE; Range: NEGATIVE; Units: mg/dL; Status: F Test: KETONE, URINE AUTO; Value: NEGATIVE; Range: NEGATIVE; Units: mg/dL; Status: F Test: UROBILINOGEN, URINE AUTO; Value: 0.2; Range: 0.0-2.0; Units: mg/dL; Status: F Test: BILIRUBIN, URINE AUTO; Value: NEGATIVE; Range: NEGATIVE; Status: F Test: NITRITE, URINE AUTO; Value: NEGATIVE; Range: NEGATIVE; Status: F Test: LEUKOCYTE ESTERASE, URINE AUTO; Value: NEGATIVE; Range: NEGATIVE; Status: F Test: BLOOD, URINE BLOOD; Value: NEGATIVE; Range: NEGATIVE; Status: F Test: WBC, URINE AUTO; Value: 1; Range: 0-3; Units: /HPF; Status: F Test: RBC, URINE AUTO; Value: 1; Range: 0-3; Units: /HPF; Status: F Test: BACTERIA, URINE AUTO; Value: NEGATIVE; Range: NEGATIVE; Status: F Test: SQUAMOUS EPITHELIAL CELL UR AU; Value: 0; Range: 0-6; Units: /HPF; Status: F Test: MUCUS, URINE; Value: SMALL; Range: NEGATIVE; Status: F Test: HYALINE CAST, URINE AUTO; Value: 0; Range: 0-1; Units: /LPF; Status: F Lab Order: Urine Culture; SPEC'M 09/23/16 11:46 Test: URINE CULTURE; Value: URINE CULTURE RESULT NO GROWTH; Status: F Lab Order: BLOOD CULTURES; SPEC'M 09/23/16 11:52 Test: BLOOD CULTURE; Value: No growth after 72 hours . All specimens observed; Status: F Test: BLOOD CULTURE; Value: for 5 days. Results final at that time.; Status: F Test: BLOOD CULTURE; Status: F Test: BLOOD CULTURE; Value: No growth after 48 hours . All specimens observed; Status: F Test: BLOOD CULTURE; Value: for 5 days. Results final at that time.; Status: F Test: BLOOD CULTURE; Status: F Test: BLOOD CULTURE; Value: No growth after 24 hours . All specimens observed; Status: F Test: BLOOD CULTURE; Value: for 5 days. Results final at that time.; Status: F Test: BLOOD CULTURE; Value: NO GROWTH AFTER 5 DAYS; Status: F Radiology Order: Chest, 1 View Test: Chest, 1 View REASON FOR EXAMINATION: Cough; CHEST, ONE VIEW:; ; HISTORY: Cough.; ; COMPARISON: 09/04/2016.; ; There is elevation of the right hemidiaphragm with loss of volume in the right; hemithorax. Linear density is present in the right lower lobe consistent with; scar. There is postoperative change in the right hilum. The left lung is clear.; The heart is normal in size. A catheter is present in the superior vena cava.; There is partial resection of the right 6th rib.; ; IMPRESSION:; ; There is postoperative change in the right hemithorax. There is no acute; disease.; ; ; Signed by; Keith Newberry MD 09/23/2016 12:13 P; Radiology Order: EKG-ADULT Test: EKG-ADULT REASON FOR EXAMINATION: weakness; Stationary ECG Study; [facility] - ED; ; Test Date: 2016-09-23; Pat Name: MARLEN BONILLA Department:; Room: -; Gender: M Tray Checker: ; : 1960 Requested By: Amara Leung; Order Number: [id number] Reading MD: Amara Leung; Measurements; Intervals [place]; Rate: 93 P: 36; SD: 116 QRS: 40; QRSD: 75 T: 7; QT: 345; QTc: 430; Interpretive Statements; SINUS RHYTHM WITH SHORT SD INTERVAL; NONSPECIFIC T-WAVE ABNORMALITY; SIMILAR 06/23/16; Electronically Signed On 09-23-2016 20:00:57 EST by Amara Leung; Radiology Order: CT Chest Without Contrast Test: CT Chest Without Contrast REASON FOR EXAMINATION: cough fever chemo ; CT chest without contrast, 09/23/2016:; ; Indication : Cough and fever, on chemotherapy; ; Comparison: CT chest 06/23/16, chest radiograph 09/04/16.; ; Technique: 3 mm spiral axial sections performed through chest without contrast; ; Findings: Thoracic aorta is without aneurysm. The heart is not enlarged. Soft; tissue fullness is seen within the paratracheal region at the site of previously; resected mass versus adenopathy which was hypermetabolic on PET scan 04/16/2016.; Findings suggest prior right upper lobectomy.; ; There is some volume loss within the right lung, especially apical region. There; are several small punctate nodular densities within the lung luna which are; compatible with calcified granulomata. Some nodules may not be calcified at this; time, yet could represent granulomatous disease as well, although they are; technically indeterminate. There are no pleural effusions or areas of lung; consolidation. There is some atelectatic changes in the right lower lobe.; ; There is mild to moderate diffuse fatty infiltration of liver. There are no; focal intrahepatic lesions seen. Evaluation of the abdomen is limited by motion; or respiratory artifact. There is persistent mural thickening within the distal; esophagus at gastroesophageal junction as previously noted. Visualized portions; of spleen, pancreas, and gallbladder grossly normal, but limited by motion; artifact.; ; Impression1. Postsurgical changes within the right hilum most compatible with; prior right upper lobectomy. Persistent mural thickening within the distal; intrathoracic esophagus and gastroesophageal junction, which should be correlated; clinically.2. Mild atelectatic changes in the right apical region and in the; right base. There are no focal alveolar infiltrates or pleural effusions.3.; Multiple calcified granulomata are seen bilaterally. There also a few scattered; tiny round nodules, likely granulomatous disease yet not calcified. These of; course are technically indeterminate and interval follow-up is recommended.4.; Mild to moderate diffuse fatty infiltration of liver. Motion artifact obscures; evaluation of the abdomen.; ; ; Signed by; Kirstie Carpio MD 09/26/2016 03:53 P; Outcome: 15:24 Discharge ordered by Provider. sd1 15:47 Discharge Assessment: Patient awake, alert and oriented x 3. No cognitive and/or mb9 functional deficits noted. Patient verbalized understanding of disposition instructions. patient administered narcotics - no. The following High Risk Discharge criteria are identified: None. Discharged to home ambulatory. Condition: good Condition: stable Condition: improved. Discharge instructions given to patient, Instructed on discharge instructions, follow up and referral plans. Demonstrated understanding of instructions, medications, Prescriptions given X. CT Study completed. Property :Personal belongings accompany Pt. 15:49 Patient left the ED. mb9 Signatures: Dispatcher [facility] EDNV Amara Leung MD MD sd1 Haylie Gotti, BENJAMÍN RN srm Jia Acosta, Reg Reg gb MariceljoseEliud, STORY READER STORY READER dd6 Consuelo Parks mm15 Shyam Gutierrez, STORY READER STORY READER jlf Jose M Ribeiro,RN RN mb9 Corrections: (The following items were deleted from the chart) 12:48 12:35 Pulse 78bpm; Monitor; Pulse Ox 99%; mb9 mb9 12:48 12:34 BP 119 / 58 Auto; mb9 mb9 12:48 12:20 Pulse 82bpm; Monitor; Pulse Ox 93%; mb9 mb9 12:48 12:19 BP 133 / 64 Auto; mb9 mb9 12:48 12:05 Pulse 84bpm; Monitor; Pulse Ox 94%; mb9 mb9 12:48 12:04 BP 119 / 59 Auto; mb9 mb9 12:48 12:17 Pulse 86bpm; Monitor; Pulse Ox 93%; mb9 mb9 12:48 12:16 BP 139 / 92 Auto; mb9 mb9 Chart Complete MTDD
== END 2016-09-23 15:49 | disposition home or self-care (01) ==
LOC: M ED 10:52
DX: J06.9 Acute upper respiratory infection, unspecified (principal); C34.11 Malignant neoplasm of upper lobe, right bronchus or lung; J44.9 Chronic obstructive pulmonary disease, unspecified; J30.2 Other seasonal allergic rhinitis; Z87.891 Personal history of nicotine dependence; Z79.51 Long term (current) use of inhaled steroids

== ENCOUNTER → 2017-02-08 | Day surgery (SDC) | payer OTHER ==
[~2017-02-08] VITALS: Ht 167.6 cm; Wt 100.2 kg
[~2017-02-08] MED LIST changes: +ALBU83IN INH; +AMOX875T2 PO; +BUPIVACAINE LIPOSOME/PF 1.3% 20 ML VIAL (13.3MG/ML)(EXPAREL) As Ordered ONE; +IPRA2IN INH; +LEVO500T32 PO; +LIDOCAINE 1% MDV 20ML VIAL As Ordered ONE; +LIDOCAINE 2% INJ 100 MG/5 ML SDV (FOR ANES.) As Ordered ONE; +LR 1,000 ML IV SCH; +METOCLOPRAMIDE INJ 10MG/2ML VIAL (J2765) IV PRN; +MIDAZOLAM INJ 5 MG/ML VIAL (J2250) As Ordered ONE; +MORPHINE 2 MG/ML 1ML SYRINGE IV PRN; +MUPIROCIN 2% OINT 22 GM TUBE TOP ONE; +ONDANSETRON 4MG/2ML VIAL (J2405) IV PRN; +PERCOCET 5MG/325MG TAB PO PRN; +PROPOFOL 200 MG/20 ML VIAL As Ordered ONE; +ceFAZolin SOD 1 GM in D5W MINI-BAG PLUS 50 ML IV ONE; +fentaNYL 100 MCG/2 ML INJECTION (J3010) As Ordered ONE; +fentaNYL 100 MCG/2 ML INJECTION (J3010) IV PRN
--- NOTE | 2017-02-08 13:52 | REP ---
Clinical: Preoperative assessment . Comparison: 09/23/2016 . Technique: PA and lateral. Findings: The mediastinum and cardiac silhouette are normal. Left-sided [id number] identified with tip in the SVC. The lung ulna are clear and without acute consolidation, effusion, or pneumothorax. Airway appears patent and midline. Degenerative changes to the thoracic spine and bilateral shoulders noted. Impression: 1. No acute cardiopulmonary process. 2. As above. Signed by Perry Valle MD 02/08/2017 01:44 P
--- NOTE | 2017-02-08 15:29 | REP ---
Clinical: Preoperative assessment . Comparison: 02/08/2017 . Findings: The mediastinum and cardiac silhouette are stable and within normal limits for portable technique. The previously noted [id number]-B-[id number] has been removed. The lung luna are clear without acute consolidation, effusion, or pneumothorax. Skeletal structures are intact. Impression: Normal portable chest x-ray. Previously noted [id number]-A-Srjs has been removed. Signed by Perry Valle MD 02/08/2017 03:20 P
[2017-02-08 15:45] VITALS: BP 128/75
--- NOTE | 2017-02-09 19:50 | RO ---
DATE OF PROCEDURE: 02/08/2017 PREPROCEDURE DIAGNOSES: Retained Infusaport and completion of chemotherapy. POSTPROCEDURE DIAGNOSES: Retained Infusaport and completion of chemotherapy. PROCEDURE: Removal of left subclavian Infusaport. SURGEON: Johnathon Rolon MD ACCOUNT SUPPORT ASSOCIATE: ANESTHESIA: DESCRIPTION OF PROCEDURE: Under satisfactory monitored anesthesia care (MAC) anesthesia, the port site was infiltrated with Exparel. Incision was made and carried down to subcutaneous tissue. The port hub was found, dissected free, and the catheter was delivered into the wound without difficulty. The glistening capsule was incised over the Infusaport, and the two sutures were cut and the Infusaport removed. Posterior glistening?? capsule was then removed by electrocautery. After achieving adequate hemostasis, the wound was closed with running #3-0 Vicryl suture for the subcutaneous tissue and running #4-0 Monocryl subcuticular suture for the skin. More Exparel was injected. Patient tolerated the procedure well and left the operating room in satisfactory condition for the recovery room.
== END | disposition home or self-care (01) ==
LOC: M SDC 13:13
PROVIDERS: ATTEND Thoracic Surgery (Cardiothoracic Vascular Surgery)
DX: Z45.2 Encounter for adjustment and management of vascular access device (principal); K21.9 Gastro-esophageal reflux disease without esophagitis; J44.9 Chronic obstructive pulmonary disease, unspecified; Z85.118 Personal history of other malignant neoplasm of bronchus and lung; Z87.891 Personal history of nicotine dependence; Z92.21 Personal history of antineoplastic chemotherapy
CPT/HCPCS: 36590; 71010; 71020; 88304; J0690; J2250; J3010

== ENCOUNTER → 2017-03-03 | Outpatient (CLI) | payer OTHER ==
[~2017-03-03] MED LIST changes: -BUPIVACAINE LIPOSOME/PF 1.3% 20 ML VIAL (13.3MG/ML)(EXPAREL) As Ordered ONE; -LIDOCAINE 1% MDV 20ML VIAL As Ordered ONE; -LIDOCAINE 2% INJ 100 MG/5 ML SDV (FOR ANES.) As Ordered ONE; -LR 1,000 ML IV SCH; -METOCLOPRAMIDE INJ 10MG/2ML VIAL (J2765) IV PRN; -MIDAZOLAM INJ 5 MG/ML VIAL (J2250) As Ordered ONE; -MORPHINE 2 MG/ML 1ML SYRINGE IV PRN; -MUPIROCIN 2% OINT 22 GM TUBE TOP ONE; -ONDANSETRON 4MG/2ML VIAL (J2405) IV PRN; -PERCOCET 5MG/325MG TAB PO PRN; -PROPOFOL 200 MG/20 ML VIAL As Ordered ONE; -ceFAZolin SOD 1 GM in D5W MINI-BAG PLUS 50 ML IV ONE; -fentaNYL 100 MCG/2 ML INJECTION (J3010) As Ordered ONE; -fentaNYL 100 MCG/2 ML INJECTION (J3010) IV PRN
[2017-03-03 18:43] LABS: ANION GAP 8 MEQ/L (8-16); BLOOD UREA NITROGEN 20 MG/DL (7-18); CALCIUM LEVEL 9.4 MG/DL (8.5-10.1); CARBON DIOXIDE LEVEL 30 MEQ/L (21-32); CHLORIDE LEVEL 104 MEQ/L (98-107); GLOMERULAR FILTRATION RATE > 60.0 (>56); GLUCOSE, FASTING 84 MG/DL (70-105); POTASSIUM SERUM 4.3 MEQ/L (3.5-5.1); SODIUM LEVEL 142 MEQ/L (136-145)
[2017-03-03 19:45] LABS: MEAN CORPUSCULAR HEMOGLOBIN 29.9 pg (27.0-33.0); MEAN CORPUSCULAR HGB CONC 33.4 g/dl (32.0-36.5); MEAN CORPUSCULAR VOLUME 89.5 fl (80.0-96.0); RED CELL DISTRIBUTION WIDTH 14.1 % (11.5-14.5)
== END ==
LOC: M SMT 14:40
PROVIDERS: ATTEND Urology
DX: Z12.5 Encounter for screening for malignant neoplasm of prostate (principal); N40.1 Benign prostatic hyperplasia with lower urinary tract symptoms

== ENCOUNTER → 2017-08-28 | Outpatient (CLI) | payer OTHER ==
[~2017-08-28] MED LIST changes: +LEVO500T3 PO; -LEVO500T32 PO; -MUCI600T34 PO; +MUCI600T37 PO
--- NOTE | 2017-09-01 07:50 | SLEEPCENT ---
DATE OF STUDY: 08/28/2017 ORDERED BY: Dr. Anderson Nocturnal polysomnography was performed for assessment of sleep physiology in this patient with a history of excessive somnolence and snoring with comorbidities of advanced lung disease and nicotine dependence. 7 hours and 39 minutes of data were reviewed. There were 383 minutes of sleep identified. Sleep latency was mildly prolonged at 16 minutes. Rapid eye movement (REM) latency however was short at 43 minutes. Sleep architecture was good with 4 REM cycles. Some fragmentation of REM was noted. Overall sleep efficiency was 84.9%. The patient's electrocardiogram (EKG) showed a sinus rhythm with PACs and average heart rate 75 beats per minute. Rate variability was seen surrounding respiratory events. Rate ranged 65 to 85 beats per minute. Electroencephalogram (EEG) showed some mild alpha intrusion into non REM stages. No focal events were identified. There were normal waveforms for awake and sleep. There were 59 respiratory events identified of 10 seconds in duration or greater for an apnea-hypopnea index of 9.2. The events were primarily obstructive, more frequent in stage REM and more frequent in the supine posture, but not exclusive to those stages nor positions. Arousals related to respiratory events occurred 3.8 times per hour when arousals from snoring were included. Significant snoring was noted over the entire test. Oxygen desaturations surrounding obstructive respiratory events were seen into the low 80s. Some limb activity was noted, particularly late in the test. There were no trains of 30 events and limb arousal index was 4.5. Remaining measures of sleep physiology were normal. IMPRESSION: Obstructive sleep apnea syndrome (G47.33), apnea-hypopnea index 9.2. RECOMMENDATION: The patient should be encouraged to return to the sleep disorder center for pressure therapy. In the interim, alcohol and sedative avoidance should be practiced and caution exercised during the operation of motor vehicles.
== END ==
LOC: M SLEEP 19:31
PROVIDERS: ATTEND Internal Medicine Pulmonary Disease
DX: G47.33 Obstructive sleep apnea (adult) (pediatric) (principal)

== ENCOUNTER → 2017-09-26 | Outpatient (CLI) | payer OTHER | LOC: M SLEEP 20:00 | DX: G47.33 Obstructive sleep apnea (adult) (pediatric) (principal) | CPT/HCPCS: 95811 ==

== ENCOUNTER → 2018-02-28 | Outpatient (REF) | payer OTHER | LOC: M LAB REF 16:57 | DX: G47.33 Obstructive sleep apnea (adult) (pediatric) (principal) ==

== ENCOUNTER 2018-03-29 08:09 | Day surgery (SDC) | payer OTHER ==
[2018-03-29] MEDS ORDERED: MIDAZOLAM INJ 2 MG/2 ML VIAL (J2250) As Ordered ×2 (08:32)
[2018-03-29] MEDS ORDERED: fentaNYL 100 MCG/2 ML INJECTION (J3010) As Ordered ×2 (08:32)
[2018-03-29] MEDS ORDERED: LIDOCAINE 2% INJ 100 MG/5 ML SDV (FOR ANES.) As Ordered ×2 (08:34)
[2018-03-29] MEDS ORDERED: PROPOFOL 200 MG/20 ML VIAL As Ordered ×2 (08:34)
[2018-03-29] MEDS ORDERED: ROCURONIUM BROMIDE 50 MG/5 ML VIAL As Ordered ×2 (08:34)
[2018-03-29] MEDS ORDERED: ONDANSETRON 4MG/2ML VIAL (J2405) As Ordered ×2 (08:35)
[2018-03-29] MEDS ORDERED: KETOROLAC 60 MG/2 ML VIAL (J1885) As Ordered ×2 (08:36)
[2018-03-29] MEDS ORDERED: dexameTHASONE 4 MG/ML 1ML VIAL (J1100) As Ordered ×2 (08:36)
[2018-03-29] MEDS: LR 1,000 ML IV ×2 (08:47)
[2018-03-29] MEDS: ceFAZolin SOD 1 GM in D5W MINI-BAG PLUS 50 ML IV (09:32)
[2018-03-29] MEDS: BUPIVACAINE/EPIN 0.25% 30 ML VIAL As Ordered ×2 (10:32)
[2018-03-29] MEDS ORDERED: fentaNYL 100 MCG/2 ML INJECTION (J3010) IV ×2 (11:00)
[2018-03-29] MEDS ORDERED: MORPHINE 4 MG/ML 1ML VIAL/SYRINGE (J2270) IV ×2 (11:00)
[2018-03-29] MEDS ORDERED: METOCLOPRAMIDE INJ 10MG/2ML VIAL (J2765) IV ×2 (11:00)
[2018-03-29] MEDS ORDERED: ONDANSETRON 4MG/2ML VIAL (J2405) IV ×4 (11:00)
[2018-03-29] MEDS ORDERED: LR 1,000 ML IV ×4 (11:00)
[2018-03-29] MEDS ORDERED: NORCO, ANEXSIA 5/325MG TABLET (HYDROcodone/ACETAMINOPHEN) PO ×2 (11:00)
[2018-03-29] MEDS ORDERED: PERCOCET 5MG/325MG TAB As Ordered ×4 (12:58→13:50)
[2018-03-29] MEDS: PERCOCET 5MG/325MG TAB PO ×4 (13:02→13:45)
== END 2018-03-29 15:20 | disposition home or self-care (01) ==
LOC: M SDC 08:09
DX: K42.0 Umbilical hernia with obstruction, without gangrene (principal); G47.30 Sleep apnea, unspecified; J44.9 Chronic obstructive pulmonary disease, unspecified; N40.0 Benign prostatic hyperplasia without lower urinary tract symptoms; Z79.899 Other long term (current) drug therapy; Z92.21 Personal history of antineoplastic chemotherapy
CPT/HCPCS: 49587

== ENCOUNTER → 2018-03-30 | Outpatient (REF) | payer OTHER | LOC: M LAB REF 16:34 | DX: R05 Cough (principal); J44.9 Chronic obstructive pulmonary disease, unspecified; Z85.118 Personal history of other malignant neoplasm of bronchus and lung ==

== ENCOUNTER → 2018-04-13 | Outpatient (REF) | payer OTHER ==
[2018-04-13 20:02] LABS: AMORPHOUS SEDIMENT MODERATE (NEGATIVE); APPEARANCE, URINE TURBID (CLEAR); BACTERIA, URINE AUTO 1+ (NEGATIVE); BILIRUBIN, URINE AUTO NEGATIVE (NEGATIVE); BLOOD, URINE BLOOD 1+ (NEGATIVE); COLOR, URINE AMBER (YELLOW); GLUCOSE, URINE (UA) AUTO NEGATIVE (NEGATIVE); KETONE, URINE AUTO NEGATIVE (NEGATIVE); LEUKOCYTE ESTERASE, URINE AUTO NEGATIVE (NEGATIVE); MUCUS, URINE LARGE (NEGATIVE); NITRITE, URINE AUTO NEGATIVE (NEGATIVE); PROTEIN, URINE AUTO NEGATIVE (NEGATIVE); RBC, URINE AUTO 1 /HPF (0-3); SPECIFIC GRAVITY URINE AUTO 1.025 (1.002-1.035); SQUAMOUS EPITHELIAL CELL UR AU 0 /HPF (0-6); UROBILINOGEN, URINE AUTO 0.2 mg/dL (0.0-2.0); WBC, URINE AUTO 2 /HPF (0-3)
== END ==
LOC: M SMT 17:20
DX: R30.0 Dysuria (principal)

== ENCOUNTER → 2018-07-22 | Outpatient (REF) | payer OTHER | LOC: M LAB REF 13:27 | DX: J44.1 Chronic obstructive pulmonary disease with (acute) exacerbation (principal) ==

== ENCOUNTER 2018-07-30 08:41 | Observation (INO) | payer OTHER ==
[2018-07-30 09:28] LABS: BASO % 0.4 % (0.0-1.0); EOS # 0.2 10^3/uL (0.0-0.50); EOS % 4.3 % (0.0-3.0); HEMATOCRIT 44.3 % (42.0-52.0); HEMOGLOBIN 15.6 g/dl (13.5-17.5); IMMATURE GRANULOCYTE % 0.8 % (0-3.0); LYMPH # 1.1 10^3/uL (1.5-4.5); LYMPH % 22.9 % (24.0-44.0); MEAN CORPUSCULAR HEMOGLOBIN 31.7 pg (27.0-33.0); MEAN CORPUSCULAR HGB CONC 35.2 g/dl (32.0-36.5); MONO # 0.4 10^3/uL (0.0-0.8); MONO % 7.1 % (0.0-5.0); NEUTROPHILS # 3.2 10^3/uL (1.8-7.7); NEUTROPHILS % 64.5 % (36.0-66.0); PLATELET COUNT, AUTOMATED 195 10^3/uL (150-450); RED BLOOD COUNT 4.92 10^6/uL (4.30-6.10); RED CELL DISTRIBUTION WIDTH 12.8 % (11.5-14.5); WHITE BLOOD COUNT 4.9 10^3/uL (4.0-10.0)
[2018-07-30 09:47] LABS: INR 1.01; PROTHROMBIN TIME 13.4 SECONDS (12.1-14.4)
[2018-07-30 09:51] LABS: ANION GAP 8 MEQ/L (8-16); BLOOD UREA NITROGEN 17 MG/DL (7-18); CALCIUM LEVEL 8.8 MG/DL (8.5-10.1); CARBON DIOXIDE LEVEL 22 MEQ/L (21-32); CHLORIDE LEVEL 109 MEQ/L (98-107); CPK CREATINE PHOSPHOKINASE 139 U/L (39-308); CREATININE FOR GFR 1.08 MG/DL (0.70-1.30); GLOMERULAR FILTRATION RATE > 60.0 (>56); GLUCOSE, FASTING 166 MG/DL (70-100); MB/CK RELATIVE INDEX 1.65 (< OR =4); POTASSIUM SERUM 4.5 MEQ/L (3.5-5.1); SODIUM LEVEL 139 MEQ/L (136-145); TROPONIN I < 0.02 NG/ML (< 0.10)
[2018-07-30 09:51] LABS: NT-PRO BNP 22 PG/ML (<125)
[2018-07-30 09:51] LABS: LACTIC ACID SEPSIS PROTOCOL 1.9 MMOL/L (0.4-2.0)
[2018-07-30] MEDS: ACETAMINOPHEN 325 MG TAB PO (10:26)
[2018-07-30 11:23] LABS: ALBUMIN/GLOBULIN RATIO 1.38 (1.00-1.93); ALKALINE PHOSPHATASE 85 U/L (45-117); ALT/SGPT 27 U/L (12-78); AST/SGOT 17 U/L (7-37); BILIRUBIN,DIRECT 0.1 MG/DL (0.0-0.2); BILIRUBIN,TOTAL 0.4 MG/DL (0.2-1.0); LIPASE 966 U/L (73-393); TOTAL PROTEIN 6.9 GM/DL (6.4-8.2)
[2018-07-30 11:49] LABS: D-DIMER QUANT < 270.0 ng/ml (<500)
[2018-07-30] MEDS ORDERED: IPRATROPIUM 0.5MG/ALBUTEROL 2.5MG INH SOL UD 3ML (DUONEB)(J7620) NEB (12:00)
[2018-07-30] MEDS ORDERED: ONDANSETRON 4MG/2ML VIAL (J2405) IV (12:00)
[2018-07-30 12:48] LABS: APPEARANCE, URINE CLEAR (CLEAR); BACTERIA, URINE AUTO NEGATIVE (NEGATIVE); BILIRUBIN, URINE AUTO NEGATIVE (NEGATIVE); BLOOD, URINE BLOOD NEGATIVE (NEGATIVE); COLOR, URINE YELLOW (YELLOW); GLUCOSE, URINE (UA) AUTO 1+ mg/dL (NEGATIVE); KETONE, URINE AUTO TRACE mg/dL (NEGATIVE); LEUKOCYTE ESTERASE, URINE AUTO NEGATIVE (NEGATIVE); MUCUS, URINE SMALL (NEGATIVE); NITRITE, URINE AUTO NEGATIVE (NEGATIVE); PROTEIN, URINE AUTO 1+ mg/dL (NEGATIVE); RBC, URINE AUTO 4 /HPF (0-3); SPECIFIC GRAVITY URINE AUTO 1.025 (1.002-1.035); SQUAMOUS EPITHELIAL CELL UR AU 0 /HPF (0-6); UROBILINOGEN, URINE AUTO 0.2 mg/dL (0.0-2.0); WBC, URINE AUTO 1 /HPF (0-3)
[2018-07-30] MEDS ORDERED: HEPARIN SOD (PORCINE) 5000 UNITS/ML VIAL SC (14:00)
[2018-07-30] MEDS: NS 1,000 ML IV ×2 (15:02→20:50)
[2018-07-30] MEDS: DOCUSATE SODIUM 100 MG CAP PO ×2 (15:03→20:50)
[2018-07-30] MEDS: ENOXAPARIN 40 MG/0.4 ML SYRINGE (J1650) SC (15:03)
[2018-07-30] MEDS: IPRATROPIUM 0.5MG/ALBUTEROL 2.5MG INH SOL UD 3ML (DUONEB)(J7620) NEB ×3 (16:13→20:00)
[2018-07-30] MEDS: ACETAMINOPHEN TAB 650MG DOSE (2X325MG) PO (16:56)
[2018-07-30] MEDS ORDERED: ALBUTEROL 90 MCG/ACT 8GM HFA INHALER INH (17:00)
[2018-07-30 17:19] LABS: LIPASE 912 U/L (73-393)
[2018-07-30] MEDS: ADVAIR HFA 115/21MCG INHALER INH (20:28)
[2018-07-30] MEDS: BACTRIM 160MG/800MG DS TAB PO (20:50)
[2018-07-31] MEDS: NS 1,000 ML IV (03:28)
[2018-07-31] MEDS: ACETAMINOPHEN TAB 650MG DOSE (2X325MG) PO ×2 (03:30→07:33)
[2018-07-31 06:22] LABS: MEAN CORPUSCULAR HEMOGLOBIN 31.4 pg (27.0-33.0); MEAN CORPUSCULAR HGB CONC 33.7 g/dl (32.0-36.5); MEAN CORPUSCULAR VOLUME 93.1 fl (80.0-96.0); PLATELET COUNT, AUTOMATED 153 10^3/uL (150-450); RED BLOOD COUNT 4.08 10^6/uL (4.30-6.10); RED CELL DISTRIBUTION WIDTH 13.2 % (11.5-14.5); WHITE BLOOD COUNT 4.6 10^3/uL (4.0-10.0)
[2018-07-31 06:31] LABS: HEMOGLOBIN 12.8 g/dl (13.5-17.5)
[2018-07-31 06:45] LABS: ANION GAP 5 MEQ/L (8-16); BLOOD UREA NITROGEN 17 MG/DL (7-18); CALCIUM LEVEL 7.7 MG/DL (8.5-10.1); CARBON DIOXIDE LEVEL 24 MEQ/L (21-32); CHLORIDE LEVEL 112 MEQ/L (98-107); CREATININE FOR GFR 1.06 MG/DL (0.70-1.30); GLOMERULAR FILTRATION RATE > 60.0 (>56); GLUCOSE, FASTING 107 MG/DL (70-100); POTASSIUM SERUM 4.2 MEQ/L (3.5-5.1); SODIUM LEVEL 141 MEQ/L (136-145)
[2018-07-31] MEDS: ADVAIR HFA 115/21MCG INHALER INH (08:29)
[2018-07-31] MEDS: IPRATROPIUM 0.5MG/ALBUTEROL 2.5MG INH SOL UD 3ML (DUONEB)(J7620) NEB (08:33)
[2018-07-31] MEDS: TAMSULOSIN 0.4 MG CAP PO (08:38)
[2018-07-31] MEDS: BACTRIM 160MG/800MG DS TAB PO (08:38)
[2018-07-31] MEDS: DOCUSATE SODIUM 100 MG CAP PO (08:38)
[2018-07-31] MEDS: ENOXAPARIN 40 MG/0.4 ML SYRINGE (J1650) SC (08:38)
[2018-07-31] MEDS: AZELASTINE 137MCG NASAL SPY 30 ML (ASTELIN) (09:00)
== END 2018-07-31 10:08 | disposition home or self-care (01) ==
LOC: M ED 08:41 → M ED INP 11:56 → M MSPAV 14:23
DX: R55 Syncope and collapse (principal); J45.909 Unspecified asthma, uncomplicated; F17.210 Nicotine dependence, cigarettes, uncomplicated; C34.91 Malignant neoplasm of unspecified part of right bronchus or lung; K21.9 Gastro-esophageal reflux disease without esophagitis; Z79.51 Long term (current) use of inhaled steroids; Z79.899 Other long term (current) drug therapy
CPT/HCPCS: J1650

== ENCOUNTER → 2018-09-26 | Outpatient (REF) | payer OTHER ==
[~2018-09-26] MED LIST changes: +ALB2.5NEB INH; +AUGM875T28 PO; +BACT800T5 PO; +FLOM0.4C39 PO; +VENTAER INH
== END ==
LOC: M LAB REF 16:49
PROVIDERS: ATTEND Internal Medicine Pulmonary Disease
DX: J44.1 Chronic obstructive pulmonary disease with (acute) exacerbation (principal)

== ENCOUNTER → 2018-10-27 | Outpatient (CLI) | payer MEDICARE, OTHER ==
[~2018-10-27] MED LIST changes: +E-Z-GAS II EFFERVESCENT PACKET (SODIUM BICARB./CITRIC ACID/SIMETHICONE) As Ordered ONE; +E-Z-HD 98% w/w 340GM SUSP BTL As Ordered ONE; +E-Z-PAQUE 96% w/w SUSP 176GM BTL As Ordered ONE
--- NOTE | 2018-10-27 17:54 | REP ---
Upper GI air contrast The procedure was performed under the direct supervision of Dr. Samano. The images were reviewed with Dr. Smaano The book solicitor film shows no organomegaly or pathological masses. The intestinal gas pattern is non-specific. Liquid barium and gas producing crystals were given in the erect position as well as liquid barium in the prone oblique position in order to perform a double contrast upper GI examination. The oral and pharyngeal stages of deglutition are unremarkable. During esophageal transport there is dysmotility with to-and-fro motion in the upright and supine positions. There is no esophagitis, stricture, mucosal ring or hiatal hernia. Gastroesophageal reflux is not demonstrated on this examination. The stomach flores are normally outlined . The rugal folds are smooth and regular. There is no gastritis neoplasm or ulcer disease. The duodenal flores are normally outlined . The mucosal folds are smooth and regular. There is no duodenitis pancreatitis peptic ulcer disease or neoplasm. The visualized portion of the proximal small bowel appears normal in course and caliber. Impression: During esophageal transport there is dysmotility with to-and-fro motion in the upright and supine positions. The stomach is otherwise unremarkable. 1.4 minutes of fluoro time was utilized for this procedure. Reviewed by DAMIAN Coats 10/27/2018 04:24 P Electronically Signed by To Samano MD 10/27/2018 05:45 P
== END ==
LOC: M RAD 10:05
PROVIDERS: ATTEND Surgery
DX: K59.8 Other specified functional intestinal disorders (principal); R93.3 Abnormal findings on diagnostic imaging of other parts of digestive tract; M51.36 Other intervertebral disc degeneration, lumbar region; M51.37 Other intervertebral disc degeneration, lumbosacral region; M25.78 Osteophyte, vertebrae; M25.552 Pain in left hip; M54.5 Low back pain; Z85.118 Personal history of other malignant neoplasm of bronchus and lung

== ENCOUNTER → 2018-10-27 | Outpatient (CLI) | payer MEDICARE, OTHER ==
[~2018-10-27] MED LIST changes: -E-Z-GAS II EFFERVESCENT PACKET (SODIUM BICARB./CITRIC ACID/SIMETHICONE) As Ordered ONE; -E-Z-HD 98% w/w 340GM SUSP BTL As Ordered ONE; -E-Z-PAQUE 96% w/w SUSP 176GM BTL As Ordered ONE
--- NOTE | 2018-10-27 11:14 | REP ---
LEFT HIP, TWO VIEWS: HISTORY: Hip pain. There is no acute fracture or dislocation. There is minimal narrowing of the joint space with associated sclerosis. IMPRESSION: Degenerative change as described above. Electronically Signed by Keith Newberry MD 10/27/2018 11:19 A
--- NOTE | 2018-10-27 12:14 | REP ---
LUMBAR SPINE, FIVE VIEWS: HISTORY: Lumbar pain. There is no acute fracture or subluxation. The lumbar intervertebral discs are decreased in height consistent with disc degeneration. Osteophytes are present throughout the lumbar spine. There is narrowing of the L4-5 and L5-S1 facet joints. IMPRESSION: Degenerative change as described above. Electronically Signed by Keith Newberry MD 10/27/2018 12:20 P
== END ==
LOC: M RAD 10:17
PROVIDERS: ATTEND Family Medicine
DX: M51.36 Other intervertebral disc degeneration, lumbar region (principal); M51.37 Other intervertebral disc degeneration, lumbosacral region; M25.78 Osteophyte, vertebrae; M25.552 Pain in left hip; M54.5 Low back pain

== ENCOUNTER → 2019-02-06 | Outpatient (REF) | payer MEDICARE, OTHER ==
[~2019-02-06] MED LIST changes: -/ADVA50050 INH; +ADVA1AER2 INH; +SALI0.6528; +SILD100T PO
== END ==
LOC: M LAB REF 13:00
PROVIDERS: ATTEND Physician Assistant
DX: J44.9 Chronic obstructive pulmonary disease, unspecified (principal)

== ENCOUNTER → 2019-02-27 | Outpatient (REF) | payer MEDICARE, OTHER ==
[~2019-02-27] MED LIST changes: +AZEL1SPR3 NARES; +HM S0.65 NARES
== END ==
LOC: M LAB REF 13:04
PROVIDERS: ATTEND Internal Medicine Pulmonary Disease
DX: J44.9 Chronic obstructive pulmonary disease, unspecified (principal)

== ENCOUNTER → 2019-03-15 | Outpatient (CLI) | payer MEDICARE, OTHER ==
--- NOTE | 2019-03-16 09:42 | REP ---
Clinical: Coughing and wheezing . Comparison: 07/30/2018 . Technique: PA and lateral. Findings: The mediastinum and cardiac silhouette are normal. The lung luna are clear and without acute consolidation, effusion, or pneumothorax. Postsurgical changes along the periphery of the right lower lung zone again noted. The skeletal structures are intact and normal. Impression: 1. No acute cardiopulmonary process. Electronically Signed by Perry Valle MD 03/15/2019 01:40 P
== END ==
LOC: M SMT 13:19
PROVIDERS: ATTEND Internal Medicine Pulmonary Disease
DX: R05 Cough (principal); R06.2 Wheezing; J44.9 Chronic obstructive pulmonary disease, unspecified

== ENCOUNTER → 2019-03-15 | Outpatient (REF) | payer MEDICARE, OTHER | LOC: M LAB REF 16:52 | PROVIDERS: ATTEND Internal Medicine Pulmonary Disease | DX: J44.9 Chronic obstructive pulmonary disease, unspecified (principal) ==

== ENCOUNTER → 2019-07-21 | Outpatient (CLI) | payer MEDICARE, OTHER ==
[~2019-07-21] MED LIST changes: +GASTROGRAFIN SOLUTION 30ML (Q9963) As Ordered ONE; +ISOVUE-370 76% 100ML VIAL (Q9967) As Ordered ONE
--- NOTE | 2019-07-21 11:59 | REP ---
Clinical: Lung cancer. Technique: Axial contrast enhanced images from the lung bases to the pubic symphysis using oral (per protocol) and 100 ml Isovue 370 intravenous contrast material with delayed images of the abdomen as well as coronal and sagittal re-formations. Comparison: 07/30/2018. Findings: Lung bases demonstrate stable linear and right lower lobe subpleural scarring along with scattered punctate calcified granulomata. Significant circumferential submucosal thickening to the visualized distal esophagus to the level of the gastroesophageal junction is again noted. Hepatic steatosis without focal hepatic lesion. Spleen, pancreas, gallbladder, bilateral adrenal glands and kidneys are normal. The enteric system is without obstruction or acute inflammatory process. Few scattered sigmoid diverticula without acute diverticulitis. Pelvis demonstrates enlarged prostate gland measuring roughly 5.2 cm maximal diameter with mass effect on the base of the bladder. No ascites. No free air. No significant adenopathy. Abdominal aorta and vasculature without aneurysm or dissection. Musculoskeletal structures demonstrate degenerative appearing changes without focal osseous abnormality. Impression: 1. Circumferential thickening of the esophagus essentially unchanged from prior examination but requires correlation. 2. Few scattered sigmoid diverticula without acute diverticulitis. 3. Enlarged prostate gland with mass effect on the base of the bladder. Electronically Signed by Perry Valle MD 07/21/2019 11:50 A
== END ==
LOC: M RAD 09:12
PROVIDERS: ATTEND Internal Medicine Medical Oncology
DX: C34.91 Malignant neoplasm of unspecified part of right bronchus or lung (principal)
CPT/HCPCS: 74177; Q9963; Q9967

== ENCOUNTER → 2019-10-16 | Outpatient (CLI) | payer MEDICARE, OTHER ==
[~2019-10-16] MED LIST changes: -GASTROGRAFIN SOLUTION 30ML (Q9963) As Ordered ONE; -ISOVUE-370 76% 100ML VIAL (Q9967) As Ordered ONE
--- NOTE | 2019-10-16 11:50 | REP ---
CT of the chest without IV contrast: Comparison is 03/09/2017. There are surgical clips in the right hilus and rib deformities in the right hemithorax compatible with right upper lobectomy. This is unchanged from the comparison study. There are no lung masses or nodules. There is a stable parenchymal scar at the inferior tip of the lingula seen to best advantage on the coronal images. There are no infiltrates or pleural effusions. There is a hiatal hernia. There is a 3.6 cm cyst interposed between the hiatal hernia and dome of the liver, unchanged, likely a pericardial cyst, a gastric duplication cyst or bronchogenic cyst. There are numerous tiny calcified granulomas bilaterally, unchanged. There is no mediastinal or axillary lymphadenopathy. The study is insensitive for hilar lymphadenopathy in the absence of IV contrast. The unenhanced thoracic aorta is unremarkable. Cardiac size is normal. The visualized upper abdominal contents are unremarkable. There is no adrenal mass. Impression: Right upper lobectomy. There are no lung masses, nodules, infiltrates or effusions. There is no adenopathy. There is a cyst interposed between the gastric hiatal hernia and dome of the liver as discussed above. Electronically Signed by Lupillo Kelly MD 10/16/2019 11:42 A
== END ==
LOC: M RAD 09:46
PROVIDERS: ATTEND Internal Medicine Pulmonary Disease
DX: Z85.118 Personal history of other malignant neoplasm of bronchus and lung (principal)

== ENCOUNTER → 2020-03-20 | Outpatient (REF) | payer MEDICARE, OTHER ==
[~2020-03-20] MED LIST changes: +BREO1INH3 PO
== END ==
LOC: M LAB REF 17:36
PROVIDERS: ATTEND Family Medicine
DX: Z01.89 Encounter for other specified special examinations (principal)

== ENCOUNTER → 2020-04-01 | Outpatient (CLI) | payer MEDICARE, OTHER ==
--- NOTE | 2020-04-01 11:09 | REP ---
REASON: Status post lobectomy. History of carcinoma. COMPARISON: Multiple, the latest 10/16/2019 The lack of intravenous contrast decreases the sensitivity of the exam. The mediastinum and pulmonary frederick again show postoperative changes due to right upper lobectomy. The mediastinum and pulmonary frederick are stable showing no evidence of a mass or adenopathy. There is evidence of diffuse circumferential thickening of the flores of the esophagus which appear stable not only from the latest prior examination but from 07/26/2017. There is no significant change in the appearance of the osseous structures. The lung luna are stable showing chronic and postoperative changes along with multiple calcified granulomas. No new abnormal nodules, masses, or opacities have developed. IMPRESSION: Chronic changes as described above. Electronically Signed by Yoav Guerra DO 04/01/2020 02:26 P
== END ==
LOC: M RAD 08:12
PROVIDERS: ATTEND Internal Medicine Pulmonary Disease
DX: J44.9 Chronic obstructive pulmonary disease, unspecified (principal); Z90.2 Acquired absence of lung [part of]

== ENCOUNTER → 2020-06-22 | Outpatient (REF) | payer MEDICARE, OTHER | LOC: M LAB REF 13:06 | PROVIDERS: ATTEND Nurse Practitioner Family | DX: R30.0 Dysuria (principal) ==

== ENCOUNTER → 2020-07-30 | Outpatient (CLI) | payer MEDICARE, OTHER | LOC: M WUC 08:23 | PROVIDERS: ATTEND Nurse Practitioner Women's Health | DX: R97.20 Elevated prostate specific antigen [PSA] (principal) ==

== ENCOUNTER → 2020-09-30 | Outpatient (REF) | payer MEDICARE, OTHER ==
[~2020-09-30] MED LIST changes: +CHEL50TA2 PO; +D 50CAP2 PO
== END ==
LOC: M LAB REF 17:08
PROVIDERS: ATTEND Internal Medicine Pulmonary Disease
DX: J44.9 Chronic obstructive pulmonary disease, unspecified (principal); R05 Cough

== ENCOUNTER → 2021-01-29 | Outpatient (REF) | payer MEDICARE, OTHER | LOC: M LAB REF 16:48 | PROVIDERS: ATTEND Internal Medicine Pulmonary Disease | DX: R05 Cough (principal); J44.9 Chronic obstructive pulmonary disease, unspecified ==

== ENCOUNTER → 2021-03-31 | Outpatient (CLI) | payer MEDICARE, OTHER ==
[2021-03-31 13:05] LABS: BLOOD UREA NITROGEN 16 MG/DL (7-18); GLOMERULAR FILTRATION RATE > 60.0 (>49)
== END ==
LOC: M WUC 08:44
PROVIDERS: ATTEND Internal Medicine Pulmonary Disease
DX: J44.9 Chronic obstructive pulmonary disease, unspecified (principal)

== ENCOUNTER → 2021-04-07 | Outpatient (CLI) | payer MEDICARE, OTHER ==
[~2021-04-07] MED LIST changes: +ISOVUE-370 76% 100ML VIAL As Ordered ONE
--- NOTE | 2021-04-07 11:12 | REP ---
INDICATION: COPD. COMPARISON: Comparison chest CT study April 01, 2020. October 16, 2019 study is also reviewed.. TECHNIQUE: Helical scanning is acquired and 3 mm axial images re-formatted. Coronal and sagittal MPR and coronal MIP images are included. FINDINGS: Preliminary digital career placement services counselor radiograph shows post thoracotomy volume loss on the right. Post thoracotomy rib changes are seen on the right status post partial pneumonectomy, apparently right upper lobectomy. These findings are unchanged. There are scattered numerous granulomatous nodules throughout the lung luna bilaterally which are also unchanged. No infiltrate, mass, or significant new lung nodule is appreciated. No pleural or pericardial effusion is seen. Vascular calcification is observed. There is a small quantity of fluid adjacent to the distal esophagus. There is moderate circumferential mural thickening in the distal esophagus. This is unchanged from the April 01, 2020 and indeed appears to be unchanged from the March 30, 2010 prior study. It is also unchanged from the October 16, 2019 exam. There is mild fatty infiltration of the liver. No focal liver lesion is seen. Normal adrenal glands are observed. The visualized upper abdominal structures are otherwise unremarkable. No bony destructive lesion is seen. IMPRESSION: . 1. Post thoracotomy partial pneumonectomy/right upper lobectomy changes. 2. Old granulomatous disease. 3. Chronic thickening of the distal esophagus wall. 4. Fatty infiltration of the liver. <Electronically signed by Dwayne Samano > 04/07/21 [id number]
== END ==
LOC: M RAD 08:45
PROVIDERS: ATTEND Internal Medicine Pulmonary Disease
DX: J44.9 Chronic obstructive pulmonary disease, unspecified (principal)
CPT/HCPCS: 71260; Q9967

== ENCOUNTER → 2021-06-12 | Outpatient (CLI) | payer MEDICARE, OTHER ==
[~2021-06-12] MED LIST changes: -ISOVUE-370 76% 100ML VIAL As Ordered ONE
== END ==
LOC: M LABSMTC 10:47
PROVIDERS: ATTEND Pediatrics
DX: Z20.822 Contact with and (suspected) exposure to COVID-19 (principal)
CPT/HCPCS: C9803; U0003

== ENCOUNTER → 2021-06-13 | Outpatient (REF) | payer MEDICARE, OTHER | LOC: M LAB REF 12:48 | PROVIDERS: ATTEND Internal Medicine Pulmonary Disease | DX: R05 Cough (principal) ==

== ENCOUNTER → 2021-07-08 | Outpatient (CLI) | payer MEDICARE, OTHER ==
[2021-07-08 11:35] LABS: BASO % 0.4 % (0.0-1.0); EOS # 0.1 10^3/uL (0.0-0.5); HEMATOCRIT 43.3 % (42.0-52.0); HEMOGLOBIN 15.3 g/dl (13.5-17.5); LYMPH # 1.8 10^3/uL (1.5-5.0); LYMPH % 25.5 % (24.0-44.0); MEAN CORPUSCULAR HEMOGLOBIN 32.1 pg (27.0-33.0); MEAN CORPUSCULAR HGB CONC 35.3 g/dl (32.0-36.5); MONO # 0.5 10^3/uL (0.0-0.8); MONO % 6.5 % (2.0-8.0); NEUTROPHILS # 4.6 10^3/uL (1.5-8.5); NEUTROPHILS % 64.9 % (36.0-66.0); PLATELET COUNT, AUTOMATED 177 10^3/uL (150-450); RED BLOOD COUNT 4.76 10^6/uL (4.30-6.10); WHITE BLOOD COUNT 7.1 10^3/uL (4.0-10.0)
[2021-07-08 11:57] LABS: BLOOD UREA NITROGEN 16 MG/DL (7-18); CREATININE FOR GFR 1.07 MG/DL (0.70-1.30); GLOMERULAR FILTRATION RATE > 60.0 (>49)
== END ==
LOC: M LAB 10:15
PROVIDERS: ATTEND Internal Medicine Pulmonary Disease
DX: R91.8 Other nonspecific abnormal finding of lung field (principal)

== ENCOUNTER → 2021-07-14 | Outpatient (CLI) | payer MEDICARE, OTHER ==
[~2021-07-14] MED LIST changes: +ISOVUE-370 76% 100ML VIAL ONE
--- NOTE | 2021-07-14 11:29 | REP ---
INDICATION: ABN FINDING OF LUNG, WHEEZING, HX MALIG NEOPLASM COMPARISON: Multiple the latest 04/07/2021 TECHNIQUE: Standard helical technique after the intravenous administration of 100 cc Isovue 370 FINDINGS: The mediastinum and pulmonary frederick are unchanged. No mass or adenopathy has developed. Note is again made of circumferential thickening of the flores of the esophagus status quo. There are no pleural or pericardial effusions. There is no significant change in the appearance of the imaged upper abdomen or imaged osseous structures. Evaluation of the lung luna shows numerous incidental calcified granulomas bilaterally status quo. There are postop changes in the right hemithorax status quo. There are numerous 2 and 3 mm sized noncalcified nodules status quo. No definite new abnormal nodules, masses, or opacities have developed. IMPRESSION: Stable CT findings as described above. <Electronically signed by Yoav Guerra > 07/14/21 [id number]
== END ==
LOC: M PLAIMG 10:17
PROVIDERS: ATTEND Internal Medicine Pulmonary Disease
DX: R91.8 Other nonspecific abnormal finding of lung field (principal); R06.2 Wheezing; Z85.118 Personal history of other malignant neoplasm of bronchus and lung
CPT/HCPCS: 71260; Q9967

== ENCOUNTER → 2021-09-26 | Outpatient (REF) | payer MEDICARE, OTHER ==
[~2021-09-26] MED LIST changes: -ISOVUE-370 76% 100ML VIAL ONE; -LEVO500T3 PO; +LEVO500T4 PO
== END ==
LOC: M LAB REF 17:12
PROVIDERS: ATTEND Internal Medicine Pulmonary Disease
DX: J44.1 Chronic obstructive pulmonary disease with (acute) exacerbation (principal)

== ENCOUNTER → 2021-10-16 | Outpatient (CLI) | payer MEDICARE, OTHER | LOC: M RAD 07:26 | PROVIDERS: ATTEND Family Medicine | DX: R79.89 Other specified abnormal findings of blood chemistry (principal); K82.8 Other specified diseases of gallbladder ==

== ENCOUNTER → 2022-01-09 | Outpatient (CLI) | payer MEDICARE, OTHER | LOC: M RAD 08:02 | PROVIDERS: ATTEND Internal Medicine Pulmonary Disease | DX: R91.8 Other nonspecific abnormal finding of lung field (principal); Z85.118 Personal history of other malignant neoplasm of bronchus and lung ==

== ENCOUNTER → 2022-02-09 | Outpatient (CLI) | payer MEDICARE, OTHER | LOC: M PLARAD 13:19 | PROVIDERS: ATTEND Internal Medicine Pulmonary Disease | DX: R91.1 Solitary pulmonary nodule (principal) | CPT/HCPCS: 78815; A9552 ==

== ENCOUNTER → 2022-04-20 | Outpatient (REF) | payer MEDICARE, OTHER ==
[~2022-04-20] MED LIST changes: +ALBU2.5V10 INH; -ALBU83IN INH; +LEVO1TAB39 PO; -LEVO500T4 PO
== END ==
LOC: M LAB REF 12:14
PROVIDERS: ATTEND Physician Assistant
DX: R30.0 Dysuria (principal)

== ENCOUNTER → 2022-12-10 | Outpatient (CLI) | payer MEDICARE, OTHER ==
[~2022-12-10] MED LIST changes: +LEVO1TAB39
== END ==
LOC: M RAD 08:40
PROVIDERS: ATTEND Internal Medicine Medical Oncology
DX: M25.519 Pain in unspecified shoulder (principal)

== ENCOUNTER 2022-12-31 11:18 | Day surgery (SDC) | payer MEDICARE, OTHER ==
[~2022-12-31] VITALS: Ht 170.2 cm; Wt 98.0 kg
[2022-12-31] MEDS ORDERED: propofoL 200 MG/20 ML VIAL As Ordered ONE ×2 (12:36→12:37)
[2022-12-31 13:08] VITALS: BP 146/71
== END 2022-12-31 13:16 | disposition home or self-care (01) ==
LOC: M OPP 11:18
PROVIDERS: ATTEND Surgery
DX: Z86.010 Personal history of colon polyps (principal); K63.5 Polyp of colon; K57.30 Diverticulosis of large intestine without perforation or abscess without bleeding; K21.9 Gastro-esophageal reflux disease without esophagitis; M19.90 Unspecified osteoarthritis, unspecified site; J44.9 Chronic obstructive pulmonary disease, unspecified; G47.30 Sleep apnea, unspecified; N40.0 Benign prostatic hyperplasia without lower urinary tract symptoms; Z85.118 Personal history of other malignant neoplasm of bronchus and lung; Z79.51 Long term (current) use of inhaled steroids; Z79.899 Other long term (current) drug therapy

== ENCOUNTER → 2023-03-25 | Outpatient (CLI) | payer MEDICARE, OTHER | LOC: M RAD 07:26 | PROVIDERS: ATTEND Internal Medicine Pulmonary Disease | DX: Z87.891 Personal history of nicotine dependence (principal) ==

== ENCOUNTER 2023-05-18 12:31 | Emergency (ER) | payer MEDICARE, OTHER ==
[~2023-05-18] VITALS: Ht 170.2 cm; Wt 99.0 kg
[~2023-05-18 12:31] MED LIST changes: -HM S0.65 NARES; +SALI0.6531 NARES
[2023-05-18 13:26] LABS: BASO % 0.4 % (0.0-1.0); EOS # 0.1 10^3/uL (0.0-0.5); EOS % 1.3 % (0.0-3.0); HEMATOCRIT 43.6 % (42.0-52.0); HEMOGLOBIN 15.2 g/dl (13.5-17.5); LYMPH # 1.4 10^3/uL (1.5-5.0); LYMPH % 25.6 % (24.0-44.0); MEAN CORPUSCULAR HEMOGLOBIN 32.1 pg (27.0-33.0); MEAN CORPUSCULAR HGB CONC 34.9 g/dl (32.0-36.5); MONO # 0.5 10^3/uL (0.0-0.8); MONO % 8.4 % (2.0-8.0); NEUTROPHILS # 3.5 10^3/uL (1.5-8.5); NEUTROPHILS % 63.8 % (36.0-66.0); PLATELET COUNT, AUTOMATED 160 10^3/uL (150-450); RED BLOOD COUNT 4.74 10^6/uL (4.30-6.10); WHITE BLOOD COUNT 5.5 10^3/uL (4.0-10.0)
[2023-05-18 14:01] LABS: LIPASE 32 U/L (12-53)
[2023-05-18 14:03] LABS: ALBUMIN 4.3 G/DL (3.2-5.2); ALKALINE PHOSPHATASE 83 U/L (46-116); ALT/SGPT 24 U/L (7.0-40); AST/SGOT 13 U/L (<34); BILIRUBIN,DIRECT 0.3 MG/DL (<0.4); BILIRUBIN,TOTAL 0.7 MG/DL (0.3-1.2); BLOOD UREA NITROGEN 17 MG/DL (9-23); CALCIUM LEVEL 8.9 MG/DL (8.3-10.6); CARBON DIOXIDE LEVEL 25 MMOL/L (20-31); CHLORIDE LEVEL 107 MMOL/L (98-107); CK-MB VALUE MASS 1.3 NG/ML (<3.6); CPK CREATINE PHOSPHOKINASE 144 U/L (46-171); CREATININE FOR GFR 0.85 MG/DL (0.70-1.30); GLOMERULAR FILTRATION RATE > 60.0 (>49); GLUCOSE, FASTING 105 MG/DL (74-106); POTASSIUM SERUM 4.1 MMOL/L (3.5-5.1); SODIUM LEVEL 140 MMOL/L (136-145)
[2023-05-18 14:50] LABS: CK-MB VALUE MASS 1.2 NG/ML (<3.6)
[2023-05-18 14:51] LABS: MB/CK RELATIVE INDEX 0.96 (< OR =4)
[2023-05-18] MEDS ORDERED: ISOVUE-370 76% 100ML VIAL As Ordered ONE (15:43)
[2023-05-18 17:01] LABS: RSV AMPLIFICATION NEGATIVE (NEGATIVE)
[2023-05-18 17:45] VITALS: BP 164/77; TEMP 98.4; O2SAT 97
== END 2023-05-18 17:53 | disposition home or self-care (01) ==
LOC: M ED 12:31
DX: T67.5XXA Heat exhaustion, unspecified, initial encounter (principal); R07.9 Chest pain, unspecified; J44.9 Chronic obstructive pulmonary disease, unspecified; G47.30 Sleep apnea, unspecified; Z85.118 Personal history of other malignant neoplasm of bronchus and lung; Z87.891 Personal history of nicotine dependence; Z79.52 Long term (current) use of systemic steroids; Z79.899 Other long term (current) drug therapy
CPT/HCPCS: 36415; 71045; 71275; 80048; 80076; 82550; 82553; 83690; 83880; 84484; 85025; 87631; 93005; 93041; 94760; 99285; Q9967

== ENCOUNTER 2024-03-09 08:58 | Observation (INO) | payer MEDICARE, OTHER ==
[~2024-03-09] VITALS: Ht 165.1 cm; Wt 96.9 kg
[~2024-03-09 08:58] MED LIST changes: +GNP250TA9 PO
[2024-03-09] MEDS: AZELASTINE 137MCG NASAL SPY 30 ML (ASTELIN) SCH (09:00)
[2024-03-09] MEDS ORDERED: ISOVUE-370 76% 100ML VIAL As Ordered ONE (09:19)
[2024-03-09 09:40] LABS: BASO % 0.4 % (0.0-1.0); EOS % 0.6 % (0.0-3.0); HEMATOCRIT 43.3 % (42.0-52.0); HEMOGLOBIN 15.4 g/dl (13.5-17.5); LYMPH # 0.9 10^3/uL (1.5-5.0); LYMPH % 13.4 % (24.0-44.0); MEAN CORPUSCULAR HEMOGLOBIN 32.8 pg (27.0-33.0); MEAN CORPUSCULAR HGB CONC 35.6 g/dl (32.0-36.5); MEAN CORPUSCULAR VOLUME 92.1 fl (80.0-96.0); MONO # 0.4 10^3/uL (0.0-0.8); NEUTROPHILS # 5.6 10^3/uL (1.5-8.5); PLATELET COUNT, AUTOMATED 195 10^3/uL (150-450)
[2024-03-09 09:41] VITALS: BP 188/90; TEMP 97.3; O2SAT 96
[2024-03-09 09:55] LABS: INR 1.09; PROTHROMBIN TIME 13.8 SECONDS (12.5-14.5)
[2024-03-09 10:01] LABS: BLOOD UREA NITROGEN 11 MG/DL (9-23); CALCIUM LEVEL 9.1 MG/DL (8.3-10.6); CARBON DIOXIDE LEVEL 26 MMOL/L (20-31); CHLORIDE LEVEL 109 MMOL/L (98-107); CREATININE FOR GFR 0.77 MG/DL (0.70-1.30); GLOMERULAR FILTRATION RATE > 60.0 (>49); GLUCOSE, FASTING 152 MG/DL (74-106); POTASSIUM SERUM 4.2 MMOL/L (3.5-5.1); SODIUM LEVEL 144 MMOL/L (136-145)
[2024-03-09] MEDS ORDERED: SERT-141 PO (10:47)
[2024-03-09] MEDS ORDERED: MAGN400T35 PO (10:47)
[2024-03-09] MEDS ORDERED: AZEL1SPR3 NARES (10:47)
[2024-03-09] MEDS ORDERED: VITA500C24 PO (10:47)
[2024-03-09] MEDS ORDERED: DIPH-435 PO (10:47)
[2024-03-09] MEDS ORDERED: IPRA0.00 INH (10:47)
[2024-03-09] MEDS ORDERED: HOME MED LIST COMPLETE! XX SCH (10:50)
[2024-03-09] MEDS: ASPIRIN 81MG CHEW TABLET PO ONE (10:51)
[2024-03-09] MEDS: FOLIC ACID 1MG TAB PO ONE (10:51)
[2024-03-09] MEDS: MULTIVITAMINS/MINERALS THERAP 1 TAB PO ONE (10:51)
[2024-03-09] MEDS: hydrALAZINE 20MG/ML 1ML VIAL IV ONE (10:52)
[2024-03-09] MEDS: THIAMINE 200MG 2ML VIAL IV ONE (10:54)
[2024-03-09 11:07] LABS: C REACTIVE PROTEIN QUANTITATIV < 0.40 MG/DL (<1.0)
[2024-03-09 11:08] LABS: ALBUMIN 4.2 G/DL (3.2-5.2); ALKALINE PHOSPHATASE 94 U/L (46-116); ALT/SGPT 30 U/L (7.0-40); AST/SGOT 23 U/L (<34); BILIRUBIN,DIRECT 0.2 MG/DL (<0.4); BILIRUBIN,TOTAL 0.6 MG/DL (0.3-1.2); CK-MB VALUE MASS 1.5 NG/ML (<3.6); CPK CREATINE PHOSPHOKINASE 135 U/L (46-171); MB/CK RELATIVE INDEX 1.11 (< OR =4)
[2024-03-09 11:11] LABS: FREE T4 0.91 NG/DL (0.89-1.76); THYROID STIMULATING HORMONE 4.101 uIU/ML (0.55-4.78)
[2024-03-09] MEDS ORDERED: MAALOX 30 ML SUSP *UDC PO PRN (15:25)
[2024-03-09] MEDS ORDERED: MOM 30ML SUSPENSION UDC PO PRN (15:25)
[2024-03-09] MEDS ORDERED: ALBUTEROL 90 MCG/ACT 8GM HFA INHALER INH PRN (15:30)
[2024-03-09] MEDS ORDERED: diphenhydrAMINE 25MG CAP PO PRN (15:30)
[2024-03-09] MEDS: hydrALAZINE 20MG/ML 1ML VIAL IV STA (17:57)
[2024-03-09] MEDS: IPRATROPIUM 0.5MG/ALBUTEROL 2.5MG INH SOL UD 3ML (DUONEB) INH PRN (18:03)
[2024-03-09] MEDS: TAMSULOSIN 0.4 MG CAP PO SCH (18:05)
[2024-03-09] MEDS: ASCORBIC ACID 500 MG TAB PO SCH (18:05)
[2024-03-09] MEDS: MAGNESIUM OXIDE 400MG TAB (MAG-OX) PO SCH (18:05)
[2024-03-09] MEDS: SERTRALINE HCL 50 MG TAB PO SCH (18:05)
[2024-03-09 20:47] VITALS: BP 163/75; TEMP 97; O2SAT 97
[2024-03-09] MEDS: **hydrALAZINE** 10 MG TAB PO SCH (21:00)
[2024-03-09] MEDS: HEPARIN SOD (PORCINE) 5000UNITS/ML 1ML VIAL/SYRINGE SC SCH (21:00)
[2024-03-09] MEDS: ACETAMINOPHEN TAB 650MG DOSE (2X325MG) PO PRN (21:49)
[2024-03-09 23:25] VITALS: BP 134/71; TEMP 97.5; O2SAT 96
[2024-03-10 04:07] VITALS: BP 141/70; TEMP 98.1; O2SAT 97
[2024-03-10 05:31] LABS: CHOLESTEROL RISK RATIO 3.65 (<5); HDL CHOLESTEROL 49.3 MG/DL (>40); LDL CHOLESTEROL 109.7 MG/DL (<100); NON-HDL-C 130.7 MG/DL
[2024-03-10 08:00] VITALS: BP 149/70; TEMP 98.6; O2SAT 95
[2024-03-10] MEDS ORDERED: HYDR-161 PO (09:46)
[2024-03-10] MEDS ORDERED: BLOOMIS12 XX (09:46)
[2024-03-10] MEDS ORDERED: AMLO1TAB25 PO (09:46)
[2024-03-10] MEDS ORDERED: ATOR1TAB21 PO (09:46)
[2024-03-10 11:56] VITALS: BP 136/68; TEMP 98; O2SAT 96
[2024-03-10 12:03] VITALS: BP 136/68
[2024-03-10] MEDS ORDERED: ATORVASTATIN 20 MG TAB PO SCH (21:00)
== END 2024-03-10 12:25 | disposition home or self-care (01) ==
LOC: M ED 08:58 → M ED INP 15:23 → M PCU 20:46
PROVIDERS: ADMIT Student in an Organized Health Care Education/Training Program; ATTEND Student in an Organized Health Care Education/Training Program
DX: I16.0 Hypertensive urgency (principal); G45.4 Transient global amnesia; E66.9 Obesity, unspecified; G47.33 Obstructive sleep apnea (adult) (pediatric); K21.9 Gastro-esophageal reflux disease without esophagitis; J45.909 Unspecified asthma, uncomplicated; Z87.891 Personal history of nicotine dependence; Z79.899 Other long term (current) drug therapy
CPT/HCPCS: 36415; 70450; 70496; 70498; 70551; 71045; 80047; 80048; 80061; 80076; 81001; 82140; 82550; 82553; 83605; 84439; 84443; 84484; 85025; 85610; 85730; 86140; 86850; 86900; 86901; 87040; 93005; 93041; 93306; 94640; 94760; 96374; 96375; 96376; 99285; G0378; J0360; J3411; Q9967

== ENCOUNTER → 2024-05-12 | Outpatient (REF) | payer MEDICARE, OTHER ==
[~2024-05-12] MED LIST changes: +AMLO1TAB25 PO; +ATOR1TAB21 PO; +BLOOMIS12 XX; +DIPH-435 PO; +HYDR-161 PO; +IPRA0.00 INH; +MAGN400T35 PO; +SERT-141 PO; +VITA500C24 PO
== END ==
LOC: M LAB REF 17:05
PROVIDERS: ATTEND Internal Medicine Critical Care Medicine
DX: J30.2 Other seasonal allergic rhinitis (principal)

== ENCOUNTER → 2024-05-25 | Outpatient (CLI) | payer MEDICARE, OTHER | LOC: M RAD 14:48 | PROVIDERS: ATTEND Internal Medicine Pulmonary Disease | DX: Z12.2 Encounter for screening for malignant neoplasm of respiratory organs (principal); Z87.891 Personal history of nicotine dependence; J84.10 Pulmonary fibrosis, unspecified; I25.10 Atherosclerotic heart disease of native coronary artery without angina pectoris; I70.0 Atherosclerosis of aorta; K22.89 Other specified disease of esophagus ==

== ENCOUNTER 2024-10-16 13:01 | Day surgery (SDC) | payer MEDICARE, BC ==
[~2024-10-16] VITALS: Ht 170.2 cm; Wt 99.3 kg
[~2024-10-16 13:01] MED LIST changes: -ADV250INH INH; +ADVA1AER9 INH; +BREO1INH3 INH
[2024-10-16] MEDS ORDERED: propofoL 200 MG/20 ML VIAL As Ordered ONE (13:10)
[2024-10-16] MEDS ORDERED: LIDOCAINE 2% 100MG/5ML SDV (FOR ANES.) As Ordered ONE (13:10)
[2024-10-16 14:59] VITALS: TEMP 98
[2024-10-16 15:16] VITALS: BP 131/59; O2SAT 96
== END 2024-10-16 15:17 | disposition home or self-care (01) ==
LOC: M OPP 13:01
PROVIDERS: ATTEND Internal Medicine Gastroenterology
DX: K20.90 Esophagitis, unspecified without bleeding (principal); R93.3 Abnormal findings on diagnostic imaging of other parts of digestive tract; G47.30 Sleep apnea, unspecified; Z79.899 Other long term (current) drug therapy; Z87.891 Personal history of nicotine dependence

== ENCOUNTER → 2025-01-24 | Outpatient (CLI) | payer MEDICARE, BC ==
[~2025-01-24] MED LIST changes: -FLOM0.4C39 PO; +TAMS-18 PO
== END ==
LOC: M WUC 14:46
PROVIDERS: ATTEND Nurse Practitioner Family
DX: M79.641 Pain in right hand (principal)

== ENCOUNTER 2025-06-09 13:09 | Emergency (ER) | payer MEDICARE, BC ==
[~2025-06-09] VITALS: Ht 162.6 cm; Wt 92.2 kg
[~2025-06-09 13:09] MED LIST changes: +FEXO-63; +SEMA1PEN2
[2025-06-09 13:49] LABS: BASO # 0.0 10^3/uL (0.0-0.2); BASO % 0.3 % (0.0-1.0); EOS # 0.1 10^3/uL (0.0-0.5); EOS % 2.0 % (0.0-3.0); LYMPH # 1.6 10^3/uL (1.5-5.0); LYMPH % 23.7 % (24.0-44.0); MONO # 0.4 10^3/uL (0.0-0.8); MONO % 6.2 % (2.0-8.0); NEUTROPHILS # 4.5 10^3/uL (1.5-8.5); NEUTROPHILS % 67.5 % (36.0-66.0); PLATELET COUNT, AUTOMATED 206 10^3/uL (150-450)
[2025-06-09 14:10] LABS: OSMOLALITY SERUM 294 MOSM/KG (280-301)
[2025-06-09 14:14] LABS: ALT/SGPT 19 U/L (7.0-40); AST/SGOT 15 U/L (<34); CALCIUM LEVEL 8.7 MG/DL (8.3-10.6); CARBON DIOXIDE LEVEL 24 MMOL/L (20-31); CHLORIDE LEVEL 107 MMOL/L (98-107); CREATININE FOR GFR 0.91 MG/DL (0.70-1.30); GLOMERULAR FILTRATION RATE > 90.0 (>49); POTASSIUM SERUM 4.0 MMOL/L (3.5-5.1); SODIUM LEVEL 139 MMOL/L (136-145)
[2025-06-09 15:54] LABS: KETONE, URINE AUTO RFX NEGATIVE (NEGATIVE); LEUKOCYTE ESTERASE UR AUTO RFX NEGATIVE (NEGATIVE); MUCUS, URINE RFX SMALL (NEGATIVE); NITRITE, URINE AUTO RFX NEGATIVE (NEGATIVE); RBC, URINE AUTO RFX 0 /HPF (0-3); SQUAM EPITHELIAL CELL UR AURFX 0 /HPF (0-6); WBC, URINE AUTO RFX 0 /HPF (0-3)
[2025-06-09] MEDS: KETOROLAC 30 MG/ML 1 ML VIAL IV ONE (17:07)
[2025-06-09] MEDS: METHOCARBAMOL 1,000 MG/10 ML VIAL IV ONE (17:07)
[2025-06-09] MEDS ORDERED: METH-1164 PO (18:53)
[2025-06-09] MEDS ORDERED: KETO-204 PO (18:53)
[2025-06-09 19:08] VITALS: BP 138/75; TEMP 97; O2SAT 97
== END 2025-06-09 19:12 | disposition home or self-care (01) ==
LOC: M ED 13:09
DX: S06.0X0A Concussion without loss of consciousness, initial encounter (principal); M85.88 Other specified disorders of bone density and structure, other site; M25.78 Osteophyte, vertebrae; M50.30 Other cervical disc degeneration, unspecified cervical region; I10 Essential (primary) hypertension; G47.33 Obstructive sleep apnea (adult) (pediatric); K21.9 Gastro-esophageal reflux disease without esophagitis; J45.909 Unspecified asthma, uncomplicated; Z87.891 Personal history of nicotine dependence; Z79.52 Long term (current) use of systemic steroids; Z79.899 Other long term (current) drug therapy; Y92.9 Unspecified place or not applicable; Y93.9 Activity, unspecified; Y99.9 Unspecified external cause status; Z85.118 Personal history of other malignant neoplasm of bronchus and lung
CPT/HCPCS: 70450; 71046; 72125; 80048; 80076; 81001; 82140; 83605; 83930; 84443; 85025; 87486; 87581; 87633; 87798; 93005; 93041; 94760; 96374; 99285; J1885; J2800

== ENCOUNTER → 2025-06-15 | Outpatient (CLI) | payer MEDICARE, BC ==
[~2025-06-15] MED LIST changes: +KETO-204 PO; +METH-1164 PO
== END ==
LOC: M PLAIMG 13:45
PROVIDERS: ATTEND Internal Medicine Pulmonary Disease
DX: J84.10 Pulmonary fibrosis, unspecified (principal); J98.59 Other diseases of mediastinum, not elsewhere classified; K22.89 Other specified disease of esophagus